=== PATIENT | female | born 1980 | race African-American/Black ===

== ENCOUNTER 2016-03-30 19:44 | Emergency (ER) | payer MEDICAID ==
--- NOTE | 2016-03-30 21:14 | ER Document Report ---
ED Medical Screen (RME) - General Stated Complaint: CHEST PAIN Mode of Arrival: Ambulatory Information source: Patient Notes: pt presents with multiple c/o, sore throat, cough, chest pain, vomiting, runny nose, abdominal pain. Denies diarrhea, reports fever earlier today. Took tylenol. Denies pmh. TRAVEL OUTSIDE OF THE [place] IN LAST 30 DAYS: No - Related Data Allergies/Adverse Reactions: No Known Allergies Allergy (Verified 11/17/15 10:27) Past Medical History - Past Medical History Cardiac Medical History: Denies: Hx Coronary Artery Disease, Hx Heart Attack, Hx Hypertension Pulmonary Medical History: Denies: Hx Asthma, Hx Bronchitis, Hx COPD, Hx Pneumonia Neurological Medical History: Denies: Hx Cerebrovascular Accident, Hx Seizures Renal/ Medical History: Reports: Hx Kidney Stones, Hx Ovarian Cysts Musculoskeltal Medical History: Denies Hx Arthritis Skin Medical History: Reports Hx MRSA - MRSA 06/06/08 BREAST Infectious Medical History: Reports: Hx MRSA Past Surgical History: Reports: Hx Cholecystectomy - Immunizations Hx Diphtheria, Pertussis, Tetanus Vaccination: Yes
--- NOTE | 2016-03-30 21:44 | EKG REPORT ---
SEVERITY:- OTHERWISE NORMAL ECG - SINUS TACHYCARDIA : Confirmed by: Emily Adkins MD 30-Mar-2016 21:43:57
[2016-03-30 22:03] LABS: ABSOLUTE EOSINOPHILS # (AUTO) 0.1 10^3/uL (0.0-0.6); ABSOLUTE LYMPHOCYTES (AUTO) 1.6 10^3/uL (0.5-4.7); ABSOLUTE MONOCYTES (AUTO) 0.4 10^3/uL (0.1-1.4); ABSOLUTE NEUT (AUTO) 4.5 10^3/uL (1.7-8.2); BASOPHILS % (AUTO) 0.6 % (0-2); EOSINOPHILS % (AUTO) 2.1 % (0-6); HEMATOCRIT 35.2 % (36.0-47.0); HEMOGLOBIN 11.2 g/dL (12.0-15.5); HGB HCT DIFFERENCE -1.6; LYMPHOCYTES % (AUTO) 23.4 % (13-45); MEAN CORPUSCULAR HEMOGLOBIN 28.5 pg (27.0-33.4); MEAN CORPUSCULAR HGB CONC 31.9 g/dL (32.0-36.0); MEAN CORPUSCULAR VOLUME 89 fl (80-97); MONOCYTES % (AUTO) 6.2 % (3-13); RED BLOOD COUNT 3.93 10^6/uL (3.72-5.28); RED CELL DISTRIBUTION WIDTH 13.2 % (11.5-14.0); SEGMENTED NEUTROPHILS % (AUTO) 67.7 % (42-78); WHITE BLOOD COUNT 6.6 10^3/uL (4.0-10.5)
[2016-03-30 22:12] LABS: APPEARANCE,URINE SLIGHTLY-CLOUDY; BILIRUBIN,URINE NEGATIVE (NEGATIVE); GLUCOSE, URINE NEGATIVE (NEGATIVE); KETONES,URINE NEGATIVE (NEGATIVE); LEUKOCYTE ESTERASE,URINE TRACE (NEGATIVE); NITRITE,URINE NEGATIVE (NEGATIVE); PROTEIN,URINE NEGATIVE (NEGATIVE); URINE SPECIFIC GRAVITY 1.028; UROBILINOGEN,URINE NEGATIVE mg/dL (<2.0)
[2016-03-30 22:24] LABS: ALANINE AMINOTRANSFERASE 28 U/L (9-52); ALBUMIN 4.3 g/dL (3.5-5.0); ALKALINE PHOSPHATASE 65 U/L (38-126); ANION GAP 11 (5-19); ASPARTATE AMINO TRANSFERASE 17 U/L (14-36); BILIRUBIN,TOTAL 0.4 mg/dL (0.2-1.3); BLOOD UREA NITROGEN 15 mg/dL (7-20); CALCIUM 9.6 mg/dL (8.4-10.2); CARBON DIOXIDE 29 mmol/L (22-30); CHLORIDE 102 mmol/L (98-107); CREATININE RESULT 0.81 mg/dL (0.52-1.25); GLUCOSE 90 mg/dL (75-110); POTASSIUM 4.2 mmol/L (3.6-5.0); SODIUM 141.8 mmol/L (137-145); TOTAL PROTEIN 7.1 g/dL (6.3-8.2)
[2016-03-31] MEDS ORDERED: ONDANSETRON 4 MG TAB.RAPDIS PO ONE (01:31)
[2016-03-31] MEDS ORDERED: ACETAMINOPHEN 325 MG TABLET PO ONE (01:31)
--- NOTE | 2016-03-31 01:39 | ER Document Report ---
ED General - General Mode of Arrival: Ambulatory Information source: Patient TRAVEL OUTSIDE OF THE [place] IN LAST 30 DAYS: No - HPI Patient complains to provider of: Headache, nausea, and vomiting Onset: This morning Associated symptoms: Other - see above <ADA ESAT - Last Filed: 03/31/16 02:32> <LEONCIOSAMIR ANN - Last Filed: 03/31/16 03:40> - General Chief Complaint: Flu Symptoms Stated Complaint: CHEST PAIN Notes: 35-year-old female presents to the ED complaining of flulike symptoms including headache, vomiting, and nausea that started earlier today. Patient denies abdominal pain or diarrhea. He states that she usually takes Tylenol for her headache and that it usually works. At the time of the exam the patient is able to keep food down and denies vomiting while in the ED. (ADA EAST) - Related Data Allergies/Adverse Reactions: No Known Allergies Allergy (Verified 11/17/15 10:27) Past Medical History - General Information source: Patient - Social History Smoking Status: Unknown if Ever Smoked Frequency of alcohol use: None Drug Abuse: None Family History: CAD, Hyperlipidemia, Hypertension, Malignancy Patient has suicidal ideation: No Patient has homicidal ideation: No Renal/ Medical History: Reports: Hx Kidney Stones, Hx Ovarian Cysts Skin Medical History: Reports Hx MRSA - MRSA 06/06/08 BREAST Infectious Medical History: Reports: Hx MRSA Past Surgical History: Reports: Hx Cholecystectomy - Immunizations Hx Diphtheria, Pertussis, Tetanus Vaccination: Yes <ADA EAST - Last Filed: 03/31/16 02:32> Review of Systems - Review of Systems Constitutional: No symptoms reported EENT: No symptoms reported Cardiovascular: No symptoms reported Respiratory: No symptoms reported Gastrointestinal: See HPI, Nausea, Vomiting. denies: Abdominal pain, Diarrhea Genitourinary: No symptoms reported Female Genitourinary: No symptoms reported Musculoskeletal: No symptoms reported Skin: No symptoms reported Hematologic/Lymphatic: No symptoms reported Neurological/Psychological: See HPI, Headaches -: Yes All other systems reviewed and negative <ADA EAST - Last Filed: 03/31/16 02:32> Physical Exam - General General appearance: Alert In distress: None - HEENT Head: Normocephalic, Atraumatic Eyes: Normal Extraocular movements intact: Yes Pupils: PERRL - Respiratory Respiratory status: No respiratory distress Breath sounds: Normal - Cardiovascular Rhythm: Regular Heart sounds: Normal auscultation - Abdominal Inspection: Normal - Back Back: Normal - Extremities General upper extremity: Normal inspection, Normal ROM General lower extremity: Normal inspection, Normal ROM - Neurological Neuro grossly intact: Yes Cognition: Normal Orientation: AAOx4 [place] Coma Scale Eye Opening: Spontaneous [place] Coma Scale Verbal: Oriented [place] Coma Scale Motor: Obeys Commands [place] Coma Scale Total: 15 Speech: Normal - Psychological Associated symptoms: Normal affect, Normal mood - Skin Skin Temperature: Warm Skin Moisture: Dry Skin Color: Normal <ADA EAST - Last Filed: 03/31/16 02:32> Course - Laboratory Result Diagrams: 03/30/16 21:40 03/30/16 21:40 <ADA EAST - Last Filed: 03/31/16 02:32> - Laboratory Result Diagrams: 03/30/16 21:40 03/30/16 21:40 - Diagnostic Test Radiology reviewed: Reports reviewed <SAMIR FANG - Last Filed: 03/31/16 03:40> - Re-evaluation Re-evalutation: 03/31/16 03:39 Patient feels better after medications. Blood work within normal limits. X- ray within normal limits. Stable for discharge home. Follow-up with PMD. ( SAMIR FANG) - Laboratory Laboratory results interpreted by me: 03/30/16 03/30/16 21:40 21:40 Hgb 11.2 L Hct 35.2 L MCHC 31.9 L Ur Leukocyte Esterase TRACE H (ADA EAST) (SAMIR FANG) Discharge <ADA EAST - Last Filed: 03/31/16 02:32> <SAMIR FANG - Last Filed: 03/31/16 03:40> - Discharge Clinical Impression: Atypical chest pain Vomiting Qualifiers: Vomiting type: unspecified Vomiting Intractability: non-intractable Nausea presence: with nausea Qualified Code(s): R11.2 - Nausea with vomiting, unspecified Condition: Stable Disposition: HOME, SELF-CARE Instructions: Vomiting ([facility]), Chest Pain of Unclear Cause ([facility]) Forms: Return to Work Scribe Attestation: 03/31/16 03:40 I personally performed the services described in the documentation, reviewed and edited the documentation which was dictated to the scribe in my presence, and it accurately records my words and actions. (SAMIR FANG) Scribe Documentation - Scribe Written by Scribe:: Candido Alexandre, 03/31/2016 2:01 acting as scribe for :: Leoncio <ADA EAST - Last Filed: 03/31/16 02:32>
[2016-03-31] MEDS ORDERED: ONDANSETRON ODT 4 MG TAB (6 TAB/DSPK) PO PRN (03:30)
[2016-03-31 04:12] VITALS: BP 108/55
== END 2016-03-31 04:10 | disposition home or self-care (01) ==
LOC: ER 19:44
DX: R11.2 Nausea with vomiting, unspecified (principal); R07.89 Other chest pain; R51 Headache; Z86.14 Personal history of Methicillin resistant Staphylococcus aureus infection; Z90.49 Acquired absence of other specified parts of digestive tract
CPT/HCPCS: 93005; 99284; 36415; 87070; 87880; 84703; 85025; 80053; 81001; 84484; 87804; 71020; 93010; J3490; S0119

== ENCOUNTER 2016-08-03 11:29 | Emergency (ER) | payer MEDICAID ==
[2016-08-03] MEDS ORDERED: ONDANSETRON 4 MG TAB.RAPDIS PO ONE (12:02)
[2016-08-03] MEDS ORDERED: NORMAL SALINE 1000 ML 1,000 ML IV ONE (12:03)
--- NOTE | 2016-08-03 12:06 | ER Document Report ---
ED Medical Screen (RME) - General Chief Complaint: Nausea/Vomiting Stated Complaint: VOMITING,STOMACH PAIN Time Seen by Provider: 08/03/16 11:55 Mode of Arrival: Ambulatory Information source: Patient Notes: This is a 36-year-old female who presents with left flank and left lower abdominal pain for the past 2 or 3 days as well as persistent nausea and vomiting. Of note, she had a positive home test 3 days ago. She is a with 2 prior first trimester miscarriages. She denies any vaginal bleeding. No dysuria or hematuria. She does have a history of kidney stones but states this feels somewhat different. No fevers or chills. She is noted to be actively vomiting in the triage room I have greeted and performed a rapid initial assessment of this patient. A comprehensive ED assessment and evaluation of the patient, analysis of test results and completion of the medical decision making process will be conducted by additional ED providers. TRAVEL OUTSIDE OF THE [place] IN LAST 30 DAYS: No - Related Data Allergies/Adverse Reactions: No Known Allergies Allergy (Verified 08/03/16 11:44) Past Medical History - Past Medical History Cardiac Medical History: Denies: Hx Coronary Artery Disease, Hx Heart Attack, Hx Hypertension Pulmonary Medical History: Denies: Hx Asthma, Hx Bronchitis, Hx COPD, Hx Pneumonia Neurological Medical History: Denies: Hx Cerebrovascular Accident, Hx Seizures Renal/ Medical History: Reports: Hx Kidney Stones, Hx Ovarian Cysts. Denies: Hx Peritoneal Dialysis Musculoskeltal Medical History: Denies Hx Arthritis Skin Medical History: Reports Hx MRSA - MRSA 06/06/08 BREAST Infectious Medical History: Reports: Hx MRSA Past Surgical History: Reports: Hx Cholecystectomy - Immunizations Hx Diphtheria, Pertussis, Tetanus Vaccination: Yes Physical Exam - General In distress: Mild - alert, conversant, uncomfortable and actively vomiting
[2016-08-03 12:57] LABS: ABSOLUTE EOSINOPHILS # (AUTO) 0.1 10^3/uL (0.0-0.6); ABSOLUTE LYMPHOCYTES (AUTO) 2.5 10^3/uL (0.5-4.7); ABSOLUTE MONOCYTES (AUTO) 0.5 10^3/uL (0.1-1.4); ABSOLUTE NEUT (AUTO) 6.8 10^3/uL (1.7-8.2); BASOPHILS % (AUTO) 0.4 % (0-2); EOSINOPHILS % (AUTO) 0.7 % (0-6); HEMOGLOBIN 13.5 g/dL (12.0-15.5); HGB HCT DIFFERENCE -1.5; LYMPHOCYTES % (AUTO) 25.1 % (13-45); MEAN CORPUSCULAR HEMOGLOBIN 29.3 pg (27.0-33.4); MEAN CORPUSCULAR HGB CONC 32.2 g/dL (32.0-36.0); MEAN CORPUSCULAR VOLUME 91 fl (80-97); MONOCYTES % (AUTO) 4.5 % (3-13); RED BLOOD COUNT 4.62 10^6/uL (3.72-5.28); SEGMENTED NEUTROPHILS % (AUTO) 69.3 % (42-78); WHITE BLOOD COUNT 9.9 10^3/uL (4.0-10.5)
[2016-08-03 13:09] LABS: APPEARANCE,URINE CLOUDY; BILIRUBIN,URINE NEGATIVE (NEGATIVE); GLUCOSE, URINE NEGATIVE (NEGATIVE); KETONES,URINE 20 mg/dL (NEGATIVE); LEUKOCYTE ESTERASE,URINE MODERATE (NEGATIVE); NITRITE,URINE NEGATIVE (NEGATIVE); PROTEIN,URINE 30 mg/dL (NEGATIVE); URINE SPECIFIC GRAVITY 1.029; UROBILINOGEN,URINE NEGATIVE mg/dL (<2.0)
--- NOTE | 2016-08-03 13:57 | RADIOLOGY REPORT (SQ) ---
EXAM DESCRIPTION: U/S OB TRANSVAGINAL W/O DOP COMPLETED DATE/TIME: 08/03/2016 1:48 pm REASON FOR STUDY: LLQ pain COMPARISON: None. TECHNIQUE: Transvaginal static and realtime grayscale images acquired of the pelvis. Additional teodoro cted spectral and color Doppler images recorded. All images stored on PACs. bHCG: Not available. LIMITATIONS: None. FINDINGS: FETUS: Living intrauterine . EGA: 6 week 4 day. ALMA DELIA: 03/25/2017. FHR: 124 beats per minute. SUBCHORIONIC BLEED: Yes. SIZE OF BLEED: 3 mm by 2.4 cm. UTERUS: No masses. No anomalies. CERVICAL LENGTH: 4.2 Closed. RIGHT ADNEXA: Ovary not identified. No adnexal free fluid. No adnexal masses. LEFT ADNEXA: Ovary not identified. No adnexal free fluid. No adnexal masses. FREE FLUID: None. OTHER: No other significant finding. IMPRESSION: LIVING INTRAUTERINE . EGA 6 WEEK 4 DAY. Trimester of : First - 0 to 13 weeks. TECHNICAL DOCUMENTATION: JOB ID: [id number] [employer]- All Rights Reserved
[2016-08-03 14:31] LABS: ALANINE AMINOTRANSFERASE 35 U/L (9-52); ALBUMIN 4.5 g/dL (3.5-5.0); ALKALINE PHOSPHATASE 58 U/L (38-126); ANION GAP 12 (5-19); ASPARTATE AMINO TRANSFERASE 21 U/L (14-36); BILIRUBIN,DIRECT 0.3 mg/dL (0.0-0.4); BILIRUBIN,TOTAL 0.8 mg/dL (0.2-1.3); BLOOD UREA NITROGEN 12 mg/dL (7-20); CALCIUM 9.7 mg/dL (8.4-10.2); CARBON DIOXIDE 24 mmol/L (22-30); CHLORIDE 103 mmol/L (98-107); CREATININE RESULT 0.72 mg/dL (0.52-1.25); GLUCOSE 96 mg/dL (75-110); LIPASE 66.2 U/L (23-300); POTASSIUM 4.7 mmol/L (3.6-5.0); SODIUM 138.7 mmol/L (137-145); TOTAL PROTEIN 7.6 g/dL (6.3-8.2)
[2016-08-03] MEDS ORDERED: ACETAMINOPHEN 325 MG TABLET PO ONE (16:22)
[2016-08-03] MEDS ORDERED: CETIRIZINE 10 MG TABLET PO ONE (16:23)
--- NOTE | 2016-08-03 17:24 | RADIOLOGY REPORT (SQ) ---
EXAM DESCRIPTION: U/S RETROPERITON (RENAL/AORTA) COMPLETED DATE/TIME: 08/03/2016 5:11 pm REASON FOR STUDY: left flank pain, , ?kidney stone COMPARISON: None. TECHNIQUE: Dynamic and static grayscale images acquired of the kidneys and bladder and recorded on P ACS. Additional selected color Doppler and spectral images recorded. LIMITATIONS: None. FINDINGS: RIGHT KIDNEY: Normal size, 10.2 cm. Normal echogenicity. No suspicious calcifications or masses. No hydronephrosis. LEFT KIDNEY: Normal size, 10.4 cm. Normal echogenicity. No suspicious calcifications or masses. N o hydronephrosis. BLADDER: Incompletely filled. Not well evaluated. OTHER FINDINGS: No other significant finding. IMPRESSION: NORMAL RENAL AND BLADDER ULTRASOUND. TECHNICAL DOCUMENTATION: JOB ID: [id number] [employer]- All Rights Reserved
[2016-08-03] MEDS ORDERED: NITROFURANTOIN MONOHYD/M-CRYST 100 MG CAPSULE PO ONE (17:25)
--- NOTE | 2016-08-03 17:37 | ER Document Report ---
ED GI/ - General Chief Complaint: Nausea/Vomiting Stated Complaint: VOMITING,STOMACH PAIN Time Seen by Provider: 08/03/16 11:55 Mode of Arrival: Ambulatory Notes: Patient is a 36-year-old female who presents emergency department complaining of headache, nausea and vomiting for the past 3 days. Patient states her last menstrual period was June 20. Took a test last week which was positive. Denies any blood in her emesis, coffee-ground emesis. Admits to intermittent cramping in her pelvic area which radiates to her left flank. States that she does have a history of kidney stones which are sporadic and maybe gets 2-3 year. TRAVEL OUTSIDE OF THE [place] IN LAST 30 DAYS: No - Related Data Allergies/Adverse Reactions: No Known Allergies Allergy (Verified 08/03/16 11:44) Past Medical History - General Information source: Patient - Social History Smoking Status: Never Smoker Chew tobacco use (# tins/day): No Drug Abuse: None Family History: CAD, Hyperlipidemia, Hypertension, Malignancy Patient has suicidal ideation: No Patient has homicidal ideation: No - Past Medical History Cardiac Medical History: Denies: Hx Coronary Artery Disease, Hx Heart Attack, Hx Hypertension Pulmonary Medical History: Denies: Hx Asthma, Hx Bronchitis, Hx COPD, Hx Pneumonia Neurological Medical History: Denies: Hx Cerebrovascular Accident, Hx Seizures Renal/ Medical History: Reports: Hx Kidney Stones, Hx Ovarian Cysts. Denies: Hx Peritoneal Dialysis Musculoskeltal Medical History: Denies Hx Arthritis Skin Medical History: Reports Hx MRSA - MRSA 06/06/08 BREAST Infectious Medical History: Reports: Hx MRSA Past Surgical History: Reports: Hx Cholecystectomy - Immunizations Hx Diphtheria, Pertussis, Tetanus Vaccination: Yes Review of Systems - Review of Systems Constitutional: No symptoms reported Gastrointestinal: See HPI Genitourinary: No symptoms reported Female Genitourinary: No symptoms reported -: Yes All other systems reviewed and negative Physical Exam - Vital signs Vitals: Temp Pulse Resp BP Pulse Ox 98 F 88 16 118/78 100 08/03/16 18:00 08/03/16 18:00 08/03/16 18:00 08/03/16 18:00 08/03/16 18:00 - Notes Notes: PHYSICAL EXAM GENERAL: Alert, interacts well. HEAD: Normocephalic, atraumatic. EYES: Pupils equal, round, and reactive to light. Extraocular movements intact. ENT: Oral mucosa moist, tongue midline. NECK: Full range of motion. Supple. Trachea midline. LUNGS: Clear to auscultation bilaterally, no wheezes, rales, or rhonchi. No respiratory distress. HEART: Regular rate and rhythm. No murmurs, gallops, or rubs. ABDOMEN: Soft, nondistended, nontender. No guarding, rebound, or rigidity.. Bowel sounds present in all 4 quadrants. Female exam deferred EXTREMITIES: Moves all 4 extremities spontaneously. No edema, radial and dorsalis pedis pulses 2/4 bilaterally. No cyanosis. NEUROLOGICAL: Alert and oriented x4. Normal speech. PSYCH: Normal affect, normal mood. SKIN: Warm, dry, normal turgor. No rashes or lesions noted. Course - Re-evaluation Re-evalutation: 08/03/16 19:30 Patient is a 36-year-old female who is hemodynamically stable, no acute distress and afebrile. Transvaginal ultrasound living IUP 6 weeks. Subchorionic bleed measuring 3mm x 2.4cm. Also positive for leuk esterase and white blood cells. Renal ultrasound did not reveal any evidence of kidney stone or hydronephrosis. discharge patient home on p.o. antibiotics with instruction to follow-up with the health department. - Vital Signs Vital signs: Temp Pulse Resp BP Pulse Ox 98 F 88 16 118/78 100 08/03/16 18:00 08/03/16 18:00 08/03/16 18:00 08/03/16 18:00 08/03/16 18:00 - Laboratory Result Diagrams: 08/03/16 12:43 08/03/16 13:50 Laboratory results interpreted by me: 08/03/16 08/03/16 12:15 13:50 Beta HCG, Quant 72511.00 H Urine Protein 30 H Urine Ketones 20 H Ur Leukocyte Esterase MODERATE H - Diagnostic Test Radiology reviewed: Reports reviewed Discharge - Discharge Clinical Impression: Heart burn, Flank pain, Condition: Good Disposition: HOME, SELF-CARE Additional Instructions: URINARY TRACT INFECTION: Your evaluation indicates that you have a urinary tract infection. This is due to germs growing in the bladder. This is a common problem. This infection usually responds quickly to antibiotics. Your antibiotic should be taken exactly as prescribed. Drink plenty of fluids -- three to four quarts a day. Occasionally, a bladder anesthetic will be prescribed to help stop the feeling of urgency until the antibiotic has a chance to clear the infection. This may cause your urine to be dark orange. Certain urine infections require a culture. If the doctor obtained a culture, the results will be back in two days. You should call to see if a change in treatment is needed. A repeat urinalysis after you finish treatment is often recommended. The physician will let you know if further testing is required. Call the doctor if you develop fever, chills, flank pain, inability to urinate, or blood in the urine. ANTIBIOTIC THERAPY: You have been given an antibiotic prescription. It's important that you take all the medication, unless instructed otherwise by your physician. Failure to complete the entire course can result in relapse of your condition. Common side effects of antibiotics include nausea, intestinal cramping, or diarrhea. Women may develop vaginal yeast infections, and babies can get yeast (thrush) in the mouth following the use of antibiotics. Contact your physician if you develop significant side effects from this medication. Allergy to this antibiotic can result in hives, wheezing, faintness, or itching. If symptoms of allergy occur, stop the medication and call the doctor. NITROFURANTOIN (MACRODANTIN, MACROBID): You have received a prescription for nitrofurantoin (Macrodantin). This antibiotic is used for urinary tract infections. Women who are or nursing should notify the physician before taking this medicine. If you have ever had a problem caused by this medication in the past, be sure the physician is aware of it. Common side effects of this medicine include nausea, vomiting, or decreased appetite. Notify your physician if these side effects become severe. Immediately stop this medicine and call the physician if you develop cough , shortness of breath, chest pain, weakness, jaundice (yellow color of the skin and whites of the eyes), or a skin rash. FOLLOW-UP CARE: If you have been referred to a physician for follow-up care, call the physician s office for an appointment as you were instructed or within the next two days. If you experience worsening or a significant change in your symptoms, notify the physician immediately or return to the Emergency Department at any time for re-evaluation. Prescriptions: Nitrofurantoin/Nitrofuran Mac [Macrobid 100 mg Capsule] 1 tab PO BID 7 Days Forms: Return to School Referrals: HEALTH DEPT,[facility] [NO LOCAL MD] - Follow up in 1 week
[2016-08-03 19:12] VITALS: BP 118/78
== END 2016-08-03 18:00 | disposition home or self-care (01) ==
LOC: ER 11:29
DX: O26.891 Other specified pregnancy related conditions, first trimester (principal); R12 Heartburn; R10.2 Pelvic and perineal pain; R10.9 Unspecified abdominal pain; R51 Headache; O20.8 Other hemorrhage in early pregnancy; O21.9 Vomiting of pregnancy, unspecified; Z3A.01 Less than 8 weeks gestation of pregnancy; Z87.442 Personal history of urinary calculi; Z87.42 Personal history of other diseases of the female genital tract; Z86.14 Personal history of Methicillin resistant Staphylococcus aureus infection; Z90.49 Acquired absence of other specified parts of digestive tract
CPT/HCPCS: 99284; 96360; 86900; 86901; 36415; 84702; 83690; 85025; 80053; 81001; 76817; 76770; J3490 ×2; S0119; J7030

== ENCOUNTER 2016-08-05 11:02 | Emergency (ER) | payer MEDICAID ==
--- NOTE | 2016-08-05 12:05 | ER Document Report ---
ED Medical Screen (RME) - General Chief Complaint: Abdominal Pain Stated Complaint: ABDOMINAL PAIN Time Seen by Provider: 08/05/16 11:58 Mode of Arrival: Ambulatory Information source: Patient TRAVEL OUTSIDE OF THE [place] IN LAST 30 DAYS: No - HPI Onset: Yesterday Onset/Duration: Sudden Severity: Severe Associated Symptoms: Nausea, Vomiting Exacerbated by: Other - VOMITING Relieved by: Denies Similar symptoms previously: No Recently seen / treated by doctor: No - Related Data Allergies/Adverse Reactions: No Known Allergies Allergy (Verified 08/05/16 11:04) Past Medical History - General Information source: Patient - Past Medical History Cardiac Medical History: Reports: None Denies: Hx Coronary Artery Disease, Hx Heart Attack, Hx Hypertension Pulmonary Medical History: Reports: None Denies: Hx Asthma, Hx Bronchitis, Hx COPD, Hx Pneumonia EENT Medical History: Reports: None Neurological Medical History: Denies: Hx Cerebrovascular Accident, Hx Seizures Endocrine Medical History: Reports: None Renal/ Medical History: Reports: Hx Kidney Stones, Hx Ovarian Cysts. Denies: Hx Peritoneal Dialysis Malignancy Medical History: Reports: None GI Medical History: Reports: None Musculoskeltal Medical History: Denies Hx Arthritis Skin Medical History: Reports Hx MRSA - MRSA 06/06/08 BREAST Psychiatric Medical History: Reports: None Infectious Medical History: Reports: Hx MRSA Past Surgical History: Reports: Hx Cholecystectomy - Immunizations Hx Diphtheria, Pertussis, Tetanus Vaccination: Yes Review of Systems - Review of Systems -: Yes ROS unobtainable due to patient's medical condition - VERY POOR HISTORIAN , APPEARS TO BE IN SEVERE PAIN Physical Exam - Vital signs Vitals: Temp Pulse Resp BP Pulse Ox 98.2 F 93 17 133/87 H 98 08/05/16 11:04 08/05/16 11:04 08/05/16 11:04 08/05/16 11:04 08/05/16 11:04 Interpretation: Normal. No: Tachycardic, Tachypneic, Febrile - General General appearance: Alert In distress: Moderate Notes: PERSISTS IN POSITION, POORLY COOPERATIVE WITH Hx AND EXAM - HEENT Head: Normocephalic Eyes: Normal - Respiratory Respiratory status: No respiratory distress - Cardiovascular Rhythm: Regular - Abdominal Inspection: Other - UNABLE TO EXAMINE, IN POSITION - Extremities General upper extremity: Normal inspection General lower extremity: Normal inspection - Skin Skin Temperature: Warm Skin Moisture: Dry Skin Color: Normal Skin Turgor: Elastic Course - Vital Signs Vital signs: Temp Pulse Resp BP Pulse Ox 98.2 F 93 17 133/87 H 98 08/05/16 11:04 08/05/16 11:04 08/05/16 11:04 08/05/16 11:04 08/05/16 11:04
[2016-08-05] MEDS ORDERED: NORMAL SALINE 1000 ML 1,000 ML IV ONE (12:09)
[2016-08-05 13:17] LABS: ABSOLUTE LYMPHOCYTES (AUTO) 2.5 10^3/uL (0.5-4.7); ABSOLUTE MONOCYTES (AUTO) 0.7 10^3/uL (0.1-1.4); ABSOLUTE NEUT (AUTO) 7.3 10^3/uL (1.7-8.2); BASOPHILS % (AUTO) 0.4 % (0-2); EOSINOPHILS % (AUTO) 0.4 % (0-6); HEMATOCRIT 40.1 % (36.0-47.0); HEMOGLOBIN 13.2 g/dL (12.0-15.5); HGB HCT DIFFERENCE -0.5; LYMPHOCYTES % (AUTO) 23.7 % (13-45); MEAN CORPUSCULAR HEMOGLOBIN 29.5 pg (27.0-33.4); MEAN CORPUSCULAR HGB CONC 32.8 g/dL (32.0-36.0); MEAN CORPUSCULAR VOLUME 90 fl (80-97); MONOCYTES % (AUTO) 6.7 % (3-13); RED BLOOD COUNT 4.46 10^6/uL (3.72-5.28); SEGMENTED NEUTROPHILS % (AUTO) 68.8 % (42-78); WHITE BLOOD COUNT 10.6 10^3/uL (4.0-10.5)
--- NOTE | 2016-08-05 13:22 | ER Document Report ---
ED General - General Chief Complaint: Abdominal Pain Stated Complaint: ABDOMINAL PAIN Time Seen by Provider: 08/05/16 11:58 Mode of Arrival: Ambulatory Notes: The patient presents to the emergency department with complaints of burning in her stomach. She reports she cannot eat or drink since Monday. Patient was evaluated in the emergency department Monday for abdominal pain. At that time patient found out she is currently 6 weeks . She denies fever diarrhea. She reports epigastric pain. Reports that she had these same symptoms with her other 2 pregnancies for the first 3 months of . Patient was evaluated and treated for UTI 2 days ago in the emergency department. She just filled her prescription this a.m. Has taken 1 dose. TRAVEL OUTSIDE OF THE [place] IN LAST 30 DAYS: No - HPI Onset: Yesterday Onset/Duration: Persistent Quality of pain: Burning Severity: Severe Pain Level: 5 Associated symptoms: Nausea Exacerbated by: Food Relieved by: Denies Similar symptoms previously: Yes Recently seen / treated by doctor: Yes - Related Data Allergies/Adverse Reactions: No Known Allergies Allergy (Verified 08/05/16 11:04) Past Medical History - General Information source: Patient Last Menstrual Period: - 6 w - Social History Smoking Status: Current Every Day Smoker Cigarette use (# per day): Yes Chew tobacco use (# tins/day): No Frequency of alcohol use: None Drug Abuse: None. denies: Marijuana - quit Lives with: Family Family History: CAD, Hyperlipidemia, Hypertension, Malignancy Patient has suicidal ideation: No Patient has homicidal ideation: No - Past Medical History Cardiac Medical History: Reports: None Denies: Hx Coronary Artery Disease, Hx Heart Attack, Hx Hypertension Pulmonary Medical History: Reports: None Denies: Hx Asthma, Hx Bronchitis, Hx COPD, Hx Pneumonia EENT Medical History: Reports: None Neurological Medical History: Denies: Hx Cerebrovascular Accident, Hx Seizures Endocrine Medical History: Reports: None Renal/ Medical History: Reports: Hx Kidney Stones, Hx Ovarian Cysts. Denies: Hx Peritoneal Dialysis Malignancy Medical History: Reports: None GI Medical History: Reports: Hx Gastroesophageal Reflux Disease Musculoskeltal Medical History: Denies Hx Arthritis Skin Medical History: Reports Hx MRSA - MRSA 06/06/08 BREAST Psychiatric Medical History: Reports: None Infectious Medical History: Reports: Hx MRSA Past Surgical History: Reports: Hx Cholecystectomy - Immunizations Hx Diphtheria, Pertussis, Tetanus Vaccination: Yes Review of Systems - Review of Systems Notes: Review HPI for review of systems., All other systems negative Physical Exam - Vital signs Vitals: Temp Pulse Resp BP Pulse Ox 98.2 F 93 17 133/87 H 98 08/05/16 11:04 08/05/16 11:04 08/05/16 11:04 08/05/16 11:04 08/05/16 11:04 - Notes Notes: PHYSICAL EXAMINATION: GENERAL: looks upset, emotional HEAD: Atraumatic, normocephalic. EYES: Pupils equal round extraocular movements intact, sclera anicteric, conjunctiva are normal. ENT: nares patent, . Moist mucous membranes. NECK: Normal range of motion, supple without lymphadenopathy LUNGS: CTAB and equal. No wheezes rales or rhonchi. HEART: Regular rate and rhythm without murmurs ABDOMEN: c/o epigastric tenderness. No guarding, no rebound EXTREMITIES: Normal range of motion, no pitting edema. No cyanosis. NEUROLOGICAL: Cranial nerves grossly intact. Normal sensory/motor exams. PSYCH: Normal mood, normal affect. SKIN: Warm, Dry, normal turgor, no rashes or lesions noted Course - Re-evaluation Re-evalutation: 08/05/16 14:40 sp gravity 1.038, 1 L NS and 1 l LR given. Otherwise labs unremarkable patient reports she feels much better after the GI cocktail. Sleeping soundly no more gagging. Patient will be instructed on reflux, foods to avoid, medication she may take when she is . She will be prescribed antinausea med 08/05/16 15:08 Pt now sitting up in bed c/o of abdominal burning. Spitting into an emesis bag. - Vital Signs Vital signs: Temp Pulse Resp BP Pulse Ox 98.6 F 86 24 H 141/65 H 98 08/05/16 16:08 08/05/16 16:08 08/05/16 16:08 08/05/16 16:08 08/05/16 16:08 - Laboratory Result Diagrams: 08/05/16 12:20 08/05/16 12:20 Laboratory results interpreted by me: 08/05/16 08/05/16 08/05/16 12:20 12:20 12:20 WBC 10.6 H Total Protein 8.5 H Beta HCG, Quant 50549.00 H Urine Protein 100 H Urine Ketones 80 H Ur Leukocyte Esterase MODERATE H Discharge - Discharge Clinical Impression: History of gastroesophageal reflux (GERD), , Dehydration, Epigastric abdominal pain, Elevated blood pressure reading Condition: Stable Disposition: HOME, SELF-CARE Instructions: Antacid Therapy ([facility]), Antinausea Medication ([facility]), ( [facility]), Reflux Disease (GERD) ([facility]), Dehydration ([facility]), Intravenous (IV) Fluids ( [facility]), Evaluation of Upper Abdominal Pain ([facility]) Additional Instructions: *You have been evaluated for epigastric pain, history of GERD, dehydration *Take medication as prescribed *avoid acidy foods, avoid over eating *Follow up with an HEARING AND SPEECH ASSISTANT, Health department or your primary care provider within one week *Return to ED for worsening condition, changes, needs *Return to ED if not better in 24 hours Prescriptions: Mag Hydrox/Al Hydrox/Simeth [Maalox Suspension] 10 ml PO QID #150 oral.susp Metoclopramide HCl [Reglan 10 mg Tablet] 1 tab PO TID #25 tablet Forms: Elevated Blood Pressure
[2016-08-05] MEDS ORDERED: LIDOCAINE 2% VISCOUS SOLN 20 ML UDCUP PO ONE (13:27)
[2016-08-05] MEDS ORDERED: METOCLOPRAMIDE HCL ORAL SOLN 10 MG/10 ML UDCUP PO ONE (13:27)
[2016-08-05] MEDS ORDERED: MAG HYDROX/AL HYDROX/SIMETH SUSP 30 ML UDCUP PO ONE ×2 (13:27→15:43)
[2016-08-05 13:28] LABS: APPEARANCE,URINE CLOUDY; BILIRUBIN,URINE NEGATIVE (NEGATIVE); GLUCOSE, URINE NEGATIVE (NEGATIVE); KETONES,URINE 80 mg/dL (NEGATIVE); LEUKOCYTE ESTERASE,URINE MODERATE (NEGATIVE); NITRITE,URINE NEGATIVE (NEGATIVE); PROTEIN,URINE 100 mg/dL (NEGATIVE); URINE SPECIFIC GRAVITY 1.038; UROBILINOGEN,URINE NEGATIVE mg/dL (<2.0)
[2016-08-05 13:35] LABS: ALANINE AMINOTRANSFERASE 30 U/L (9-52); ALBUMIN 4.7 g/dL (3.5-5.0); ALKALINE PHOSPHATASE 67 U/L (38-126); ANION GAP 15 (5-19); ASPARTATE AMINO TRANSFERASE 22 U/L (14-36); BILIRUBIN,DIRECT 0.4 mg/dL (0.0-0.4); BILIRUBIN,TOTAL 0.9 mg/dL (0.2-1.3); BLOOD UREA NITROGEN 12 mg/dL (7-20); CALCIUM 9.8 mg/dL (8.4-10.2); CARBON DIOXIDE 24 mmol/L (22-30); CHLORIDE 98 mmol/L (98-107); GLUCOSE 96 mg/dL (75-110); LIPASE 67.6 U/L (23-300); POTASSIUM 4.1 mmol/L (3.6-5.0); SODIUM 137.3 mmol/L (137-145); TOTAL PROTEIN 8.5 g/dL (6.3-8.2)
[2016-08-05] MEDS ORDERED: RINGERS SOLUTION,LACTATED 1,000 ML IV ONE (14:50)
[2016-08-05 16:11] VITALS: BP 141/65
== END 2016-08-05 17:00 | disposition home or self-care (01) ==
LOC: ER 11:02
DX: K21.9 Gastro-esophageal reflux disease without esophagitis (principal); E86.0 Dehydration; R10.13 Epigastric pain; R03.0 Elevated blood-pressure reading, without diagnosis of hypertension; F17.210 Nicotine dependence, cigarettes, uncomplicated; Z33.1 Pregnant state, incidental
CPT/HCPCS: 99283; 36415; 84702; 83690; 85025; 80053; 81001; J3490 ×3; J7030; J7120

== ENCOUNTER 2016-08-21 15:16 | Emergency (ER) | payer MEDICAID ==
[2016-08-21] MEDS ORDERED: NORMAL SALINE 1000 ML 2,000 ML IV ONE (16:18)
[2016-08-21] MEDS ORDERED: MAG HYDROX/AL HYDROX/SIMETH SUSP 30 ML UDCUP PO ONE (16:18)
[2016-08-21] MEDS ORDERED: LIDOCAINE 2% VISCOUS SOLN 20 ML UDCUP PO ONE (16:18)
[2016-08-21] MEDS ORDERED: METOCLOPRAMIDE HCL INJ/PF 10 MG/2 ML SDV IV ONE (16:19)
--- NOTE | 2016-08-21 16:19 | ER Document Report ---
ED GI/ - General Chief Complaint: Psych Problem Stated Complaint: CHEST PAIN Time Seen by Provider: 08/21/16 16:17 Mode of Arrival: Ambulatory Information source: Patient Notes: 36-year-old female complaining of epigastric abdominal pain, midline retrosternal with swallowing and vomiting. She is not able to swallow her spit because of pain. She is 9 weeks and is unable to eat due to the vomiting. Persistent nausea. No vaginal discharge or bleeding, no dysuria , cholecystectomyy. no fever or chills. TRAVEL OUTSIDE OF THE [place] IN LAST 30 DAYS: No - Related Data Allergies/Adverse Reactions: No Known Allergies Allergy (Verified 08/05/16 11:04) Past Medical History - General Information source: Patient - Social History Smoking Status: Unknown if Ever Smoked Frequency of alcohol use: None Drug Abuse: None Lives with: Parents Family History: CAD, Hyperlipidemia, Hypertension, Malignancy Renal/ Medical History: Reports: Hx Kidney Stones, Hx Ovarian Cysts GI Medical History: Reports: Hx Gastroesophageal Reflux Disease Skin Medical History: Reports Hx MRSA - MRSA 06/06/08 BREAST Infectious Medical History: Reports: Hx MRSA Past Surgical History: Reports: Hx Cholecystectomy - Immunizations Hx Diphtheria, Pertussis, Tetanus Vaccination: Yes Physical Exam - Vital signs Vitals: Resp BP Pulse Ox 19 134/116 H 100 08/21/16 15:36 08/21/16 15:36 08/21/16 15:36 Course - Re-evaluation Re-evalutation: 08/21/16 16:48 Already feels better with the GI cocktail worked instantaneously. 08/21/16 17:47 And burning have recurred after the GI cocktail wore off. 08/21/16 17:56 kept some apple juice and saltines down. 3rd liter NS ordered, pravacid and pepcid too. 08/21/16 18:[address] esa freeman who recommends Prevacid 30 mg daily while she is waiting for a psychiatric consult tomorrow, nightly Dyche liters, chest x-ray, and a dose of Decadron for the esophagitis. 08/21/16 18:[address] gibbs is aware that I will not be prescribing the prednisone we do not have likely just here but I ordered Prevacid 30 mg daily, Benadryl 25 mg 4 times daily and Reglan 10 mg 4 times daily. Psych will see the patient in the morning. For discharge for the hyperemesis gravidarum .1. Diclegis 1 po nightly #30 2. prevacid 30md daily #30 08/21/16 19:19 Tearful when discussing her case with Sharath who will take over on the patient. The pain has returned and we will order 3 mg of morphine and 1 g of Carafate suspension. She is willing to wait until she can talk to psych in the morning due to her feelings of depression and despondency. We will not need to IVC her because she agrees to stay with us for evaluation. Chest x-ray is pending and Sharath will check for that result. 08/21/16 19:20 - Vital Signs Vital signs: Temp Pulse Resp BP Pulse Ox 98.2 F 14 125/59 L 89 L 08/21/16 15:37 08/21/16 18:01 08/21/16 18:01 08/21/16 17:01 - Laboratory Result Diagrams: 08/21/16 15:40 08/21/16 15:40 Laboratory results interpreted by me: 08/21/16 08/21/16 15:40 18:25 Sodium 134.4 L Urine Protein 100 H Urine Ketones 80 H Urine Bilirubin SMALL H Urine Urobilinogen 2.0 H Ur Leukocyte Esterase LARGE H Salicylates < 1.0 L Acetaminophen < 10 L
[2016-08-21] MEDS ORDERED: DIPHENHYDRAMINE HCL 50 MG/ML VIAL IV ONE (16:22)
[2016-08-21 16:54] LABS: ABSOLUTE LYMPHOCYTES (AUTO) 3.1 10^3/uL (0.5-4.7); ABSOLUTE MONOCYTES (AUTO) 0.8 10^3/uL (0.1-1.4); ABSOLUTE NEUT (AUTO) 5.8 10^3/uL (1.7-8.2); BASOPHILS % (AUTO) 0.4 % (0-2); EOSINOPHILS % (AUTO) 0.5 % (0-6); HEMATOCRIT 38.1 % (36.0-47.0); HEMOGLOBIN 12.6 g/dL (12.0-15.5); HGB HCT DIFFERENCE -0.3; LYMPHOCYTES % (AUTO) 31.8 % (13-45); MEAN CORPUSCULAR HEMOGLOBIN 29.6 pg (27.0-33.4); MEAN CORPUSCULAR HGB CONC 33.1 g/dL (32.0-36.0); MEAN CORPUSCULAR VOLUME 89 fl (80-97); RED BLOOD COUNT 4.27 10^6/uL (3.72-5.28); RED CELL DISTRIBUTION WIDTH 12.4 % (11.5-14.0); SEGMENTED NEUTROPHILS % (AUTO) 59.3 % (42-78); WHITE BLOOD COUNT 9.7 10^3/uL (4.0-10.5)
[2016-08-21 17:12] LABS: ALANINE AMINOTRANSFERASE 52 U/L (9-52); ALBUMIN 4.2 g/dL (3.5-5.0); ALKALINE PHOSPHATASE 58 U/L (38-126); ANION GAP 13 (5-19); ASPARTATE AMINO TRANSFERASE 34 U/L (14-36); BILIRUBIN,DIRECT 0.4 mg/dL (0.0-0.4); BILIRUBIN,TOTAL 0.6 mg/dL (0.2-1.3); BLOOD UREA NITROGEN 9 mg/dL (7-20); CALCIUM 10.1 mg/dL (8.4-10.2); CARBON DIOXIDE 23 mmol/L (22-30); CHLORIDE 98 mmol/L (98-107); CREATININE RESULT 0.67 mg/dL (0.52-1.25); GLUCOSE 110 mg/dL (75-110); POTASSIUM 3.8 mmol/L (3.6-5.0); SODIUM 134.4 mmol/L (137-145); TOTAL PROTEIN 7.8 g/dL (6.3-8.2)
[2016-08-21 17:13] LABS: ALCOHOL < 10 mg/dL (NONE DETECTED)
[2016-08-21] MEDS ORDERED: LANSOPRAZOLE 30 MG TAB.RAP.DR PO ONE ×2 (17:49→19:15)
[2016-08-21] MEDS ORDERED: FAMOTIDINE 20 MG TABLET PO ONE (17:49)
[2016-08-21] MEDS ORDERED: NORMAL SALINE 1000 ML 1,000 ML IV ONE (17:55)
[2016-08-21 18:50] LABS: APPEARANCE,URINE CLOUDY; BILIRUBIN,URINE SMALL (NEGATIVE); GLUCOSE, URINE NEGATIVE (NEGATIVE); KETONES,URINE 80 mg/dL (NEGATIVE); LEUKOCYTE ESTERASE,URINE LARGE (NEGATIVE); NITRITE,URINE NEGATIVE (NEGATIVE); PROTEIN,URINE 100 mg/dL (NEGATIVE); URINE SPECIFIC GRAVITY 1.035
[2016-08-21 19:02] LABS: URINE BARBITURATES SCREEN NEGATIVE; URINE METHADONE SCREEN NEGATIVE; URINE OPIATES LOW NEGATIVE; URINE PHENCYCLIDINE SCREEN NEGATIVE
[2016-08-21] MEDS ORDERED: MORPHINE SULFATE 10 MG/ML INJ IV ONE (19:19)
[2016-08-21] MEDS ORDERED: SUCRALFATE SUSP 1 GM/10 ML UDCUP PO ONE (19:19)
--- NOTE | 2016-08-21 19:25 | RADIOLOGY REPORT (SQ) ---
EXAM DESCRIPTION: CHEST PA/LAT COMPLETED DATE/TIME: 08/21/2016 7:02 pm REASON FOR STUDY: chest pain, hyperemesis gravidarum COMPARISON: Two-view chest 03/30/2016 EXAM PARAMETERS: NUMBER OF VIEWS: two views TECHNIQUE: Digital Frontal and Lateral radiographic views of the chest acquired. RADIATION DOSE: NA LIMITATIONS: none FINDINGS: LUNGS AND PLEURA: No opacities, masses or pneumothorax. No pleural effusion. MEDIASTINUM AND HILAR STRUCTURES: No masses or contour abnormalities. HEART AND VASCULAR STRUCTURES: Heart normal size. No evidence for failure. BONES: No acute findings. HARDWARE: Clips right upper quadrant post cholecystectomy OTHER: No other significant finding. IMPRESSION: NO SIGNIFICANT RADIOGRAPHIC FINDING IN THE CHEST. TECHNICAL DOCUMENTATION: JOB ID: [id number] [employer]- All Rights Reserved
[2016-08-21] MEDS ORDERED: ACETAMINOPHEN 325 MG TABLET PO ONE (22:07)
[2016-08-21] MEDS ORDERED: NITROFURANTOIN MONOHYD/M-CRYST 100 MG CAPSULE PO ONE (22:15)
[2016-08-21] MEDS ORDERED: NITROFURANTOIN MONOHYD/M-CRYST 100 MG CAPSULE PO SCH (22:15)
[2016-08-21] MEDS: METOCLOPRAMIDE HCL 10 MG TABLET PO SCH (22:22)
[2016-08-21] MEDS: DIPHENHYDRAMINE HCL 25 MG CAPSULE PO SCH (22:23)
[2016-08-22] MEDS ORDERED: DIPHENHYDRAMINE HCL 25 MG CAPSULE PO SCH (06:00)
[2016-08-22] MEDS ORDERED: LANSOPRAZOLE 30 MG TAB.RAP.DR PO SCH (06:00)
[2016-08-22] MEDS ORDERED: MAG HYDROX/AL HYDROX/SIMETH SUSP 30 ML UDCUP PO ONE (10:05)
[2016-08-22] MEDS ORDERED: LIDOCAINE 2% VISCOUS SOLN 20 ML UDCUP PO ONE (10:05)
[2016-08-22] MEDS ORDERED: SUCRALFATE SUSP 1 GM/10 ML UDCUP PO ONE (10:06)
[2016-08-22] MEDS: METOCLOPRAMIDE HCL 10 MG TABLET PO SCH (10:17)
[2016-08-22] MEDS: DIPHENHYDRAMINE HCL 25 MG CAPSULE PO SCH (10:17)
--- NOTE | 2016-08-22 10:19 | EKG REPORT ---
SEVERITY:- ABNORMAL ECG - SINUS TACHYCARDIA ABNORMAL T, CONSIDER ISCHEMIA, INFERIOR LEADS : Confirmed by: Emily Adkins MD 22-Aug-2016 10:19:04
--- NOTE | 2016-08-22 11:06 | ER Document Report ---
ED Psych Disorder / Suicide - General Chief Complaint: Suicidal Ideation Stated Complaint: CHEST PAIN Time Seen by Provider: 08/21/16 16:49 Mode of Arrival: Ambulatory Information source: Patient TRAVEL OUTSIDE OF THE [place] IN LAST 30 DAYS: No - HPI Patient complains to provider of: Suicidal ideation Onset: Just prior to arrival Onset was: Gradual Suicide Risk Factors: Bipolar, Other - 6 months Normal mood: No Associated symptoms: Flat affect Similar symptoms previously: Yes Notes: Patient is a 36 year old female in the ED for chest pain. She informed triage last evening she had SI therefore a psychiatric consult was ordered. - Related Data Allergies/Adverse Reactions: No Known Allergies Allergy (Verified 08/05/16 11:04) Past Medical History - General Information source: Patient - Social History Smoking Status: Unknown if Ever Smoked Frequency of alcohol use: None Drug Abuse: None Lives with: Parents Family History: CAD, Hyperlipidemia, Hypertension, Malignancy - Past Medical History Cardiac Medical History: Denies: Hx Coronary Artery Disease, Hx Heart Attack, Hx Hypertension Pulmonary Medical History: Denies: Hx Asthma, Hx Bronchitis, Hx COPD, Hx Pneumonia Neurological Medical History: Denies: Hx Cerebrovascular Accident, Hx Seizures Renal/ Medical History: Reports: Hx Kidney Stones, Hx Ovarian Cysts. Denies: Hx Peritoneal Dialysis GI Medical History: Reports: Hx Gastroesophageal Reflux Disease Musculoskeltal Medical History: Denies Hx Arthritis Skin Medical History: Reports Hx MRSA - MRSA 06/06/08 BREAST Infectious Medical History: Reports: Hx MRSA Past Surgical History: Reports: Hx Cholecystectomy - Immunizations Hx Diphtheria, Pertussis, Tetanus Vaccination: Yes Physical Exam - Vital signs Vitals: Resp BP Pulse Ox 19 134/116 H 100 08/21/16 15:36 08/21/16 15:36 08/21/16 15:36 Course - Vital Signs Vital signs: Temp Pulse Resp BP Pulse Ox 97.8 F 98 12 117/81 99 08/22/16 10:30 08/22/16 10:30 08/22/16 10:30 08/22/16 10:00 08/22/16 10:30 - Laboratory Result Diagrams: 08/21/16 15:40 08/21/16 15:40 Laboratory results interpreted by me: 08/21/16 08/21/16 15:40 18:25 Sodium 134.4 L Urine Protein 100 H Urine Ketones 80 H Urine Bilirubin SMALL H Urine Urobilinogen 2.0 H Ur Leukocyte Esterase LARGE H Salicylates < 1.0 L Acetaminophen < 10 L
[2016-08-22 12:24] VITALS: BP 117/72
--- NOTE | 2016-08-22 12:25 | ER Document Report ---
Doctor's Note Notes: 08/22/16 12:24 Patient resting comfortably, no complaints, no issues overnight, she was seen and evaluated by mental health coordinator who recommends discharge with outpatient follow-up tomorrow, patient suicidal ideation at this time, therefore she is cleared to be discharged with the appropriate follow-up plan and she acknowledges understanding and agreement with this plan Discharge - Discharge Clinical Impression: Suicidal ideation Condition: Fair Disposition: HOME, SELF-CARE Additional Instructions: Suicidal Ideation Suicidal ideation is a common medical term for thoughts about suicide, which may be as detailed as a formulated plan, without the suicidal act itself. Although most people who undergo suicidal ideation do not commit suicide, some go on to make suicide attempts. The range of suicidal ideation varies greatly from fleeting to detailed planning, role playing, and unsuccessful attempts. While thoughts about suicide are common, most people do not carry out serious actions to commit suicide. If you have thoughts please call mobile crisis or return to the emergency department. You have a follow up appointment at [facility] tomorrow (Monday: August 23, 2016 ) at 1000 for individual therapy. Referrals: [facility] [Provider Group] - 08/23/16 10:00 am LELE JOHNSOTN MD [Primary Care Provider] - Follow up as needed
== END 2016-08-22 12:48 | disposition home or self-care (01) ==
LOC: ER 15:16
DX: O99.340 Other mental disorders complicating pregnancy, unspecified trimester (principal); F31.9 Bipolar disorder, unspecified; O26.899 Other specified pregnancy related conditions, unspecified trimester; R45.851 Suicidal ideations; R07.9 Chest pain, unspecified; O21.0 Mild hyperemesis gravidarum; Z3A.00 Weeks of gestation of pregnancy not specified
CPT/HCPCS: 93005; 99285; 96361; 96374; 96375; 36415; 87086; 80307 ×4; 83690; 85025; 80053; 81001; 71020; 93010; J3490 ×14; J1200; J2765; J2270; J7030; J8499

== ENCOUNTER 2016-09-12 20:37 | Inpatient (IN) | payer MEDICAID ==
[2016-09-12] MEDS ORDERED: DIPHENHYDRAMINE HCL 50 MG/ML VIAL IV ONE (22:07)
[2016-09-12] MEDS ORDERED: NORMAL SALINE 1000 ML 1,000 ML IV ONE (22:07)
[2016-09-12] MEDS ORDERED: METOCLOPRAMIDE HCL INJ/PF 10 MG/2 ML SDV IV ONE (22:07)
[2016-09-12] MEDS ORDERED: MAG HYDROX/AL HYDROX/SIMETH SUSP 30 ML UDCUP PO ONE (22:08)
[2016-09-12] MEDS ORDERED: LIDOCAINE 2% VISCOUS SOLN 20 ML UDCUP PO ONE (22:08)
[2016-09-12 22:09] LABS: APPEARANCE,URINE SLIGHTLY-CLOUDY; BILIRUBIN,URINE NEGATIVE (NEGATIVE); GLUCOSE, URINE NEGATIVE (NEGATIVE); KETONES,URINE 80 mg/dL (NEGATIVE); LEUKOCYTE ESTERASE,URINE SMALL (NEGATIVE); NITRITE,URINE NEGATIVE (NEGATIVE); PROTEIN,URINE 30 mg/dL (NEGATIVE); URINE SPECIFIC GRAVITY 1.024; UROBILINOGEN,URINE NEGATIVE mg/dL (<2.0)
--- NOTE | 2016-09-12 22:13 | ER Document Report ---
ED GI/ - General Mode of Arrival: Ambulatory Information source: Patient TRAVEL OUTSIDE OF THE [place] IN LAST 30 DAYS: No - HPI Patient complains to provider of: Vaginal bleeding Associated symptoms: Other - See above <ARMANDO CASTRO - Last Filed: 09/12/16 22:13> <HELLEN ALLAN - Last Filed: 09/13/16 00:55> <KIN BAÑUELOS - Last Filed: 09/13/16 02:22> - General Chief Complaint: Vag Bleeding, +preg <12wks Stated Complaint: VAGINAL BLEEDING Time Seen by Provider: 09/12/16 21:55 Notes: Patient is a 36 year old female, with a past medical history including anxiety, who presents to the emergency department complaining of vaginal bleeding onset at 1600 this afternoon. Patient is about 12 weeks and has been to this facility multiple times for nausea, vomiting, and abdominal pain with her preganncy which she is still experiencing. Patient reports she started vomiting blood today as well. Patient states that she has not yet picked up her prescription for suppository anti-nausea medication. Patient reports he abdominal pain is located in her upper abdomen. Patient is going to [facility] for her and had an ultrasound on July 08. Her blood type is B+. (ARMANDO CASTRO) - Related Data Allergies/Adverse Reactions: No Known Allergies Allergy (Verified 08/05/16 11:04) Past Medical History - General Information source: Patient - Social History Smoking Status: Former Smoker Chew tobacco use (# tins/day): No Frequency of alcohol use: None Drug Abuse: None Family History: Reviewed & Not Pertinent, CAD, Hyperlipidemia, Hypertension, Malignancy Patient has suicidal ideation: No Patient has homicidal ideation: No Renal/ Medical History: Reports: Hx Kidney Stones, Hx Ovarian Cysts GI Medical History: Reports: Hx Gastroesophageal Reflux Disease Skin Medical History: Reports Hx MRSA - MRSA 06/06/08 BREAST Psychiatric Medical History: Reports: Hx Anxiety Infectious Medical History: Reports: Hx MRSA Past Surgical History: Reports: Hx Cholecystectomy - Immunizations Hx Diphtheria, Pertussis, Tetanus Vaccination: Yes <ARMANDO CASTRO - Last Filed: 09/12/16 22:13> Review of Systems - Review of Systems Constitutional: No symptoms reported EENT: No symptoms reported Cardiovascular: No symptoms reported Respiratory: No symptoms reported Gastrointestinal: See HPI, Abdominal pain, Nausea, Vomiting, Blood in vomit Genitourinary: No symptoms reported Female Genitourinary: See HPI, Vaginal bleeding Musculoskeletal: No symptoms reported Skin: No symptoms reported Hematologic/Lymphatic: No symptoms reported Neurological/Psychological: No symptoms reported -: Yes All other systems reviewed and negative <ARMANDO CASTRO - Last Filed: 09/12/16 22:13> Physical Exam - Vital signs Interpretation: Normal - General General appearance: Alert, Other - Appears uncomfortable, spitting up during exam - HEENT Head: Normocephalic, Atraumatic - Respiratory Respiratory status: No respiratory distress Chest status: Nontender Breath sounds: Normal Chest palpation: Normal - Cardiovascular Rhythm: Regular Heart sounds: Normal auscultation Murmur: No - Abdominal Inspection: Normal Distension: No distension Bowel sounds: Normal Tenderness: Nontender Organomegaly: No organomegaly - Extremities General upper extremity: Normal inspection General lower extremity: Normal inspection - Neurological Neuro grossly intact: Yes Cognition: Normal Orientation: AAOx4 Armando Coma Scale Eye Opening: Spontaneous [place] Coma Scale Verbal: Oriented Armando Coma Scale Motor: Obeys Commands [place] Coma Scale Total: 15 Speech: Normal - Psychological Associated symptoms: Normal affect, Normal mood, Tearful - Skin Skin Temperature: Warm Skin Moisture: Dry Skin Color: Normal <ARMANDO CASTRO - Last Filed: 09/12/16 22:13> <HELLEN ALLAN - Last Filed: 09/13/16 00:55> <KIN BAÑUELOS - Last Filed: 09/13/16 02:22> - Vital signs Vitals: Temp Pulse Resp BP Pulse Ox 98.6 F 113 H 18 90/68 L 97 09/12/16 20:52 09/12/16 20:52 09/12/16 20:52 09/12/16 20:52 09/12/16 20:52 Course <ARMANDO CASTRO - Last Filed: 09/12/16 22:13> - Laboratory Result Diagrams: 09/12/16 22:30 09/12/16 22:30 - Transfer of Care Care transferred to following provider: Dr. Bañuelos <HELLEN ALLAN - Last Filed: 09/13/16 00:55> - Laboratory Result Diagrams: 09/12/16 22:30 09/12/16 22:30 <KIN BAÑUELOS - Last Filed: 09/13/16 02:22> - Re-evaluation Re-evalutation: 09/13/16 02:22 Received IV fluids and multiple doses of nausea medication. She was checked out to me by Dr. Quigley. I have reevaluated patient. She continues to have vomiting and feels very nauseous. At this time I spoke with Dr. Potts, OB physician metal container maker, to admit the patient. Dictation of this chart was performed using voice recognition software; therefore, there may be some unintended grammatical errors. (KIN BAÑUELOS) - Vital Signs Vital signs: Temp Pulse Resp BP Pulse Ox 98.3 F 107 H 20 121/68 98 09/13/16 00:22 09/13/16 00:22 09/13/16 00:22 09/13/16 00:22 09/13/16 00:22 - Laboratory Laboratory results interpreted by me: 09/12/16 09/12/16 21:30 22:30 WBC 11.4 H Hgb 11.7 L Hct 35.7 L Urine Protein 30 H Urine Ketones 80 H Urine Blood LARGE H Ur Leukocyte Esterase SMALL H - Transfer of Care Notes: 09/13/16 00:55 Patient is receiving antiemetics and IV fluids. When she is adequately rehydrated, if still unable to keep down fluids, then will be should be consulted for admission. (HELLEN ALLAN) Discharge <ARMANDO CASTRO - Last Filed: 09/12/16 22:13> <HELLEN ALLAN - Last Filed: 09/13/16 00:55> - Discharge Admitting Provider: [facility] Admitted: Post <KIN BAÑUELOS - Last Filed: 09/13/16 02:22> - Discharge Clinical Impression: Hyperemesis gravidarum Condition: Stable Disposition: ADMITTED OBSERVATION Scribe Documentation - Scribe Written by Remigio:: remigio Rene, 09/12/162211 acting as scribe for :: Josr <ARMANDO CASTRO - Last Filed: 09/12/16 22:13>
[2016-09-12 22:43] LABS: ABSOLUTE EOSINOPHILS # (AUTO) 0.1 10^3/uL (0.0-0.6); ABSOLUTE LYMPHOCYTES (AUTO) 2.8 10^3/uL (0.5-4.7); ABSOLUTE MONOCYTES (AUTO) 0.7 10^3/uL (0.1-1.4); ABSOLUTE NEUT (AUTO) 7.8 10^3/uL (1.7-8.2); BASOPHILS % (AUTO) 0.3 % (0-2); EOSINOPHILS % (AUTO) 0.9 % (0-6); HEMATOCRIT 35.7 % (36.0-47.0); HEMOGLOBIN 11.7 g/dL (12.0-15.5); HGB HCT DIFFERENCE -0.6; LYMPHOCYTES % (AUTO) 24.9 % (13-45); MEAN CORPUSCULAR HEMOGLOBIN 29.3 pg (27.0-33.4); MEAN CORPUSCULAR HGB CONC 32.7 g/dL (32.0-36.0); MEAN CORPUSCULAR VOLUME 89 fl (80-97); MONOCYTES % (AUTO) 5.9 % (3-13); RED CELL DISTRIBUTION WIDTH 12.6 % (11.5-14.0); WHITE BLOOD COUNT 11.4 10^3/uL (4.0-10.5)
[2016-09-12 23:03] LABS: ALANINE AMINOTRANSFERASE 31 U/L (9-52); ALBUMIN 4.1 g/dL (3.5-5.0); ALKALINE PHOSPHATASE 51 U/L (38-126); ANION GAP 12 (5-19); ASPARTATE AMINO TRANSFERASE 19 U/L (14-36); BILIRUBIN,DIRECT 0.3 mg/dL (0.0-0.4); BILIRUBIN,TOTAL 0.5 mg/dL (0.2-1.3); BLOOD UREA NITROGEN 7 mg/dL (7-20); CALCIUM 10.2 mg/dL (8.4-10.2); CARBON DIOXIDE 26 mmol/L (22-30); CHLORIDE 100 mmol/L (98-107); CREATININE RESULT 0.66 mg/dL (0.52-1.25); GLUCOSE 94 mg/dL (75-110); LIPASE 47.8 U/L (23-300); POTASSIUM 4.2 mmol/L (3.6-5.0); SODIUM 137.5 mmol/L (137-145); TOTAL PROTEIN 7.5 g/dL (6.3-8.2)
[2016-09-12] MEDS ORDERED: DEXTROSE 5%-LACTATED RINGERS 1,000 ML IV ONE (23:28)
[2016-09-13] MEDS ORDERED: NORMAL SALINE 1000 ML 1,000 ML IV ONE (00:43)
[2016-09-13] MEDS ORDERED: LIDOCAINE 2% VISCOUS SOLN 20 ML UDCUP PO ONE (00:45)
[2016-09-13] MEDS ORDERED: MAG HYDROX/AL HYDROX/SIMETH SUSP 30 ML UDCUP PO ONE (00:45)
[2016-09-13] MEDS ORDERED: PROMETHAZINE HCL 25 MG TABLET PO ONE (00:46)
[2016-09-13] MEDS ORDERED: FAMOTIDINE INJ/PF 20 MG/2 ML SDV IV ONE (00:46)
[2016-09-13] MEDS ORDERED: METOCLOPRAMIDE HCL INJ/PF 10 MG/2 ML SDV IV ONE (00:49)
[2016-09-13] MEDS ORDERED: DIPHENHYDRAMINE HCL 50 MG/ML VIAL IV ONE (00:49)
[2016-09-13] MEDS ORDERED: MAG HYDROX/AL HYDROX/SIMETH SUSP 30 ML UDCUP ONE (01:16)
[2016-09-13] MEDS ORDERED: ONDANSETRON HCL INJ/PF 4 MG/2 ML SDV IV ONE (02:21)
--- NOTE | 2016-09-13 04:09 | PDOC H&P ---
History of Present Illness Admission Date/PCP: 09/13/16 02:45 TON CHA MD Patient complains of: n/v History of Present Illness: CARINE CHENEY is a 36 year old female at 12 weeks gestation. LMP Pt reports a several week long h/o n/v. Has been tx in the office with po zofran , diclegis and reglan. Now unable to hold anything down No vaginal bleeding Past Medical History LMP: 2016 Obstetrical History: none - 2 term , 2 SAB Cardiac Medical History: Denies: Myocardial Infarction, Hypertension Pulmonary Medical History: Denies: Asthma, Bronchitis, Chronic Obstructive Pulmonary Disease (COPD), Pneumonia Neurological Medical History: Denies: Seizures GI Medical History: Reports: Gastroesophageal Reflux Disease Musculoskeltal Medical History: Denies: Arthritis Infectious Medical History: Reports: Methicillin-Resistant Staph Aureus Past Surgical History Past Surgical History: Reports: Cholecystectomy, Other - LSO for dermoid cyst Social History Information Source: Patient Smoking Status: Former Smoker Frequency of Alcohol Use: None Hx Recreational Drug Use: No - Advance Directive Resuscitation Status: Full Code Family History Family History: Reviewed & Not Pertinent, CAD, Hyperlipidemia, Hypertension, Malignancy Parental Family History Reviewed: Yes Children Family History Reviewed: Yes Sibling(s) Family History Reviewed.: Yes Medication/Allergy Home Medications: Tramadol HCl 50 mg PO Q6 PRN 12/21/12 Famotidine [Pepcid 20 mg Tablet] 20 mg PO BID PRN 11/17/15 Nitrofurantoin/Nitrofuran Mac [Macrobid 100 mg Capsule] 1 tab PO BID 7 Days Mag Hydrox/Al Hydrox/Simeth [Maalox Suspension] 10 ml PO QID #150 oral.susp 04/22 Metoclopramide HCl [Reglan 10 mg Tablet] 1 tab PO TID #25 tablet 08/05/16 Allergies/Adverse Reactions: No Known Allergies Allergy (Verified 08/05/16 11:04) Review of Systems All systems: reviewed and no additional remarkable complaints except as stated Physical Exam - Physical Exam Vital Signs: Temp Pulse Resp BP Pulse Ox 98.4 F 86 24 H 111/66 100 09/13/16 03:53 09/13/16 03:53 09/13/16 03:53 09/13/16 03:53 09/13/16 03:53 General appearance: PRESENT: no acute distress, cooperative, well-developed GI/Abdominal exam: PRESENT: normal bowel sounds, soft, other - mild epigastric tenderness Assessment & Plan - Diagnosis (1) Hyperemesis gravidarum Is this a current diagnosis for this admission?: Yes (2) Qualifiers: Weeks of gestation: 12 weeks Qualified Code(s): Z3A.12 - 12 weeks gestation of Is this a current diagnosis for this admission?: Yes - Time Time Spent: 30 to 50 Minutes Medications reviewed and adjusted accordingly: Yes Anticipated discharge: Home Within: within 72 hours - will admit for IV fluid rehydration and IV antiemetics
[2016-09-13] MEDS: ONDANSETRON HCL INJ/PF 4 MG/2 ML SDV IV SCH ×3 (05:44→21:25)
[2016-09-13] MEDS: RINGERS SOLUTION,LACTATED 1,000 ML IV PRN ×2 (05:44→19:29)
--- NOTE | 2016-09-13 08:58 | RADIOLOGY REPORT (SQ) ---
EXAM DESCRIPTION: U/S OB LIMITED COMPLETED DATE/TIME: 09/13/2016 8:46 am REASON FOR STUDY: 12 WK IUP, VAG BLEEDING COMPARISON: 08/03/2016. TECHNIQUE: Transabdominal static and realtime grayscale images acquired of the pelvis. Additional se lected spectral and color Doppler images recorded. All images stored on PACs. bHCG: Not applicable. LIMITATIONS: None. FINDINGS: FETUS: EGA: 12 week 4 day. ALMA DELIA: 03/24/2017. EFW: Not applicable. FHR: 163 beats per minute. DEEPIKA: Adequate amount. CERVICAL LENGTH: 4.0 cm. Closed. UTERUS: No masses. RIGHT ADNEXA: Normal ovary with normal vascular flow. No adnexal free fluid. No adnexal masses. LEFT ADNEXA: Normal ovary with normal vascular flow. No adnexal free fluid. No adnexal masses. FREE FLUID: None. OTHER: No other significant finding. IMPRESSION: LIVING INTRAUTERINE . ESTIMATED GESTATIONAL AGE:12 WEEK 4 DAY. Trimester of : First trimester - 0 to 13 weeks. TECHNICAL DOCUMENTATION: JOB ID: [id number] [employer]- All Rights Reserved
[2016-09-13] MEDS: METOCLOPRAMIDE HCL 10 MG TABLET PO SCH ×3 (09:00→16:29)
[2016-09-13] MEDS ORDERED: NITROFURANTOIN MONOHYD/M-CRYST 100 MG CAPSULE PO SCH (10:00)
[2016-09-13] MEDS ORDERED: LANSOPRAZOLE 30 MG TAB.RAP.DR PO ONE (17:00)
[2016-09-14] MEDS: RINGERS SOLUTION,LACTATED 1,000 ML IV PRN ×2 (03:11→11:20)
[2016-09-14] MEDS: ONDANSETRON HCL INJ/PF 4 MG/2 ML SDV IV SCH (06:05)
[2016-09-14 07:07] LABS: ALANINE AMINOTRANSFERASE 30 U/L (9-52); ALBUMIN 2.9 g/dL (3.5-5.0); ALKALINE PHOSPHATASE 40 U/L (38-126); ANION GAP 8 (5-19); ASPARTATE AMINO TRANSFERASE 13 U/L (14-36); BILIRUBIN,DIRECT 0.2 mg/dL (0.0-0.4); BILIRUBIN,TOTAL 0.4 mg/dL (0.2-1.3); BLOOD UREA NITROGEN 4 mg/dL (7-20); CALCIUM 8.6 mg/dL (8.4-10.2); CARBON DIOXIDE 22 mmol/L (22-30); CHLORIDE 105 mmol/L (98-107); CREATININE RESULT 0.61 mg/dL (0.52-1.25); GLUCOSE 81 mg/dL (75-110); POTASSIUM 3.9 mmol/L (3.6-5.0); SODIUM 135.4 mmol/L (137-145); TOTAL PROTEIN 5.7 g/dL (6.3-8.2)
[2016-09-14] MEDS: METOCLOPRAMIDE HCL 10 MG TABLET PO SCH ×3 (07:50→17:03)
[2016-09-14] MEDS ORDERED: ACETAMINOPHEN 325 MG TABLET PO PRN (08:50)
[2016-09-14] MEDS ORDERED: ONDANSETRON HCL 8 MG TABLET PO PRN (09:03)
[2016-09-14] MEDS: LANSOPRAZOLE 30 MG TAB.RAP.DR PO SCH (09:16)
--- NOTE | 2016-09-14 09:56 | PDOC PROGRESS REPORT ---
Subjective Progress Note for:: 09/14/16 Subjective:: doing well except headache this am. pt reports h/o ZEE and migraines prior to . still with nausea. tolerating bland diet ok at this time. No emesis since yesterday. Physical Exam - Physical Exam Vital Signs: Temp Pulse Resp BP Pulse Ox 98.7 F 88 16 106/63 100 09/14/16 08:08 09/14/16 08:08 09/14/16 08:08 09/14/16 08:08 09/14/16 08:08 Intake & Output 09/13/16 09/14/16 09/15/16 06:59 06:59 06:59 Intake Total 1750 Balance 1750 Weight 91.2 kg General appearance: PRESENT: no acute distress Head exam: PRESENT: atraumatic Respiratory exam: PRESENT: clear to auscultation ruben, symmetrical, unlabored Cardiovascular exam: PRESENT: RRR. ABSENT: diastolic murmur, rubs, systolic murmur Pulses: PRESENT: normal dorsalis pedis pul, +2 pedal pulses bilateral GI/Abdominal exam: PRESENT: normal bowel sounds, soft. ABSENT: distended, guarding, mass, organolmegaly, rebound, tenderness Rectal exam: PRESENT: deferred Extremities exam: PRESENT: full ROM. ABSENT: calf tenderness, clubbing, pedal edema Musculoskeletal exam: PRESENT: ambulatory Neurological exam: PRESENT: alert, awake, oriented to person, oriented to place , oriented to time, oriented to situation, CN II-XII grossly intact. ABSENT: motor sensory deficit Psychiatric exam: PRESENT: appropriate affect, normal mood. ABSENT: homicidal ideation, suicidal ideation Skin exam: PRESENT: dry, intact, warm. ABSENT: cyanosis, rash Result Laboratory Results: 09/14/16 06:37 09/14/16 06:37 Sodium 135.4 L Potassium 3.9 Chloride 105 Carbon Dioxide 22 Anion Gap 8 BUN 4 L Creatinine 0.61 Est GFR ( Amer) > 60 Est GFR (Non-Af Amer) > 60 Glucose 81 Calcium 8.6 Total Bilirubin 0.4 AST 13 L ALT 30 Alkaline Phosphatase 40 Total Protein 5.7 L Albumin 2.9 L Impressions: Obstetrics Ultrasound 09/13/16 00:00 IMPRESSION: LIVING INTRAUTERINE . ESTIMATED GESTATIONAL AGE:12 WEEK 4 DAY. Trimester of : First trimester - 0 to 13 weeks. Assessment & Plan - Diagnosis (1) Hyperemesis gravidarum Is this a current diagnosis for this admission?: YesPlan: will switch to PO antiemetics. Labs slightly off this am. Pt has nto yet recieved Banana Bag - will given today and repeat labs in am. If tolerates po intake and po antiemetics may be able to discharge to home tomorrow. (2) Headache Qualifiers: Headache type: unspecified Is this a current diagnosis for this admission?: YesPlan: will try fioricet for ZEE. cont IV and po fluids. - Time Time Spent with patient: 15-24 minutes Critical Time spent with patient: Less than 15 minutes Smoking Cessation Education: 3 to 10 minutes Medications reviewed and adjusted accordingly: Yes Anticipated discharge: Home Within: within 48 hours - Inpatient Certification Based on my medical assessment, after consideration of the patient's comorbidities, presenting symptoms, or acuity I expect that the services needed warrant INPATIENT care.: Yes I certify that my determination is in accordance with my understanding of Medicare's requirements for reasonable and necessary INPATIENT services [42 CFR 412.3e].: Yes Medical Necessity: Need Close Monitoring Due to Risk of Patient Decompensation, Need For IV Fluids Post Hospital Care: D/C 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
[2016-09-14] MEDS ORDERED: BUTALB/ACETAMINOPHEN/CAFFEINE 1 TAB EACH PO PRN (09:58)
[2016-09-14] MEDS ORDERED: NORMAL SALINE 1000 ML 1,000 ML with THIAMINE HCL 100 MG, MVI, ADULT NO.1 WITH VIT K 10 ... IV SCH ×4 (12:00)
[2016-09-15] MEDS: RINGERS SOLUTION,LACTATED 1,000 ML IV PRN (06:35)
[2016-09-15 08:52] VITALS: BP 125/76
[2016-09-15] MEDS: METOCLOPRAMIDE HCL 10 MG TABLET PO SCH (09:40)
[2016-09-15] MEDS: LANSOPRAZOLE 30 MG TAB.RAP.DR PO SCH (09:40)
--- NOTE | 2016-09-15 11:04 | PDOC DISCHARGE SUMMARY ---
General - Admit/Disc Date/PCP Admission Date/Primary Care Provider: 09/13/16 07:00 TON CHA MD Discharge Date: 09/15/16 - Discharge Diagnosis (1) Headache Is this a current diagnosis for this admission?: Yes (2) Hyperemesis gravidarum Is this a current diagnosis for this admission?: Yes (3) Is this a current diagnosis for this admission?: Yes - Additional Information Resuscitation Status: Full Code Home Medications: Tramadol HCl 50 mg PO Q6 PRN 12/21/12 Famotidine [Pepcid 20 mg Tablet] 20 mg PO BID PRN 11/17/15 Nitrofurantoin/Nitrofuran Mac [Macrobid 100 mg Capsule] 1 tab PO BID 7 Days Mag Hydrox/Al Hydrox/Simeth [Maalox Suspension] 10 ml PO QID #150 oral.susp 04/22 Metoclopramide HCl [Reglan 10 mg Tablet] 1 tab PO TID #25 tablet 08/05/16 History of Present Illness History of Present Illness: CARINE CHENEY is a 36 year old female Hospital Course Hospital Course: has responded well to IV fluids and antiemetics. Electrolytes corrected with banana bag. Physical Exam - Physical Exam Vital Signs: Temp Pulse Resp BP Pulse Ox 98.2 F 91 20 125/76 100 09/15/16 08:51 09/15/16 08:51 09/15/16 08:51 09/15/16 08:51 09/15/16 08:51 Intake & Output 09/14/16 09/15/16 09/16/16 06:59 06:59 06:59 Intake Total 1750 2745 580 Output Total 2750 Balance 1750 -5 580 Weight 91.2 kg 94.6 kg General appearance: PRESENT: no acute distress, cooperative Head exam: PRESENT: atraumatic GI/Abdominal exam: PRESENT: soft Result Laboratory Results: 09/14/16 06:37 Impressions: Obstetrics Ultrasound 09/13/16 00:00 IMPRESSION: LIVING INTRAUTERINE . ESTIMATED GESTATIONAL AGE:12 WEEK 4 DAY. Trimester of : First trimester - 0 to 13 weeks. Plan Time Spent: Less than 30 Minutes - discharge home with antiemetics
== END 2016-09-15 11:35 | disposition home or self-care (01) | DRG 781 ==
LOC: ER 20:37 → EH 09-13 02:45 → 2S 09-13 03:41 → OBSVTOIN 09-13 07:00
PROVIDERS: ADMIT Obstetrics & Gynecology; ATTEND Obstetrics & Gynecology
DX: O21.0 Mild hyperemesis gravidarum (principal); O46.91 Antepartum hemorrhage, unspecified, first trimester; O09.521 Supervision of elderly multigravida, first trimester; Z3A.12 12 weeks gestation of pregnancy
CPT/HCPCS: 36415; 76815; 80053; 81001; 83690; 84443; 85025; 96361; 96365; 96375; 96376; 99285; G0378; J1200; J2405; J2765; J3411; J3490; J7030; J7120; S0028; S0119

== ENCOUNTER 2016-09-23 19:37 | Emergency (ER) | payer MEDICAID ==
[2016-09-23] MEDS ORDERED: METOCLOPRAMIDE HCL INJ/PF 10 MG/2 ML SDV IV ONE (20:34)
[2016-09-23] MEDS ORDERED: DIPHENHYDRAMINE HCL 50 MG/ML VIAL IV ONE (20:34)
[2016-09-23] MEDS ORDERED: NORMAL SALINE 1000 ML 1,000 ML IV PRN (20:34)
--- NOTE | 2016-09-23 20:36 | ER Document Report ---
ED Medical Screen (RME) - General TRAVEL OUTSIDE OF THE [place] IN LAST 30 DAYS: No - General Chief Complaint: Nausea/Vomiting Stated Complaint: CHEST PAIN Time Seen by Provider: 09/23/16 20:29 Notes: Patient is a 36 year old female presenting to the emergency department for hyperemesis, hematemesis, and abdominal pain. Patient states she went to work this morning and had to leave due to her vomiting. Patient tried taking zofran for her nausea which only lasted for about 2 hours. Patient states she also has headaches and some chest pain from the vomiting. Patient was recently admitted from 09/13-09/15. Patient is 13 weeks . Patient is A2. Patient states she had hyperemesis with her first as well. Patient has no known allergies. (ZAIRA RAMON) - Related Data Allergies/Adverse Reactions: No Known Allergies Allergy (Verified 08/05/16 11:04) Past Medical History - Social History Cigarette use (# per day): No Chew tobacco use (# tins/day): No Frequency of alcohol use: None Drug Abuse: None - Past Medical History Cardiac Medical History: Denies: Hx Heart Attack, Hx Hypertension Pulmonary Medical History: Denies: Hx Asthma, Hx Bronchitis, Hx COPD, Hx Pneumonia Neurological Medical History: Denies: Hx Seizures Renal/ Medical History: Reports: Hx Kidney Stones, Hx Ovarian Cysts. Denies: Hx Peritoneal Dialysis GI Medical History: Reports: Hx Gastroesophageal Reflux Disease Musculoskeltal Medical History: Denies Hx Arthritis Skin Medical History: Reports Hx MRSA - MRSA 06/06/08 BREAST Psychiatric Medical History: Reports: Hx Anxiety Infectious Medical History: Reports: Hx MRSA Past Surgical History: Reports: Hx Cholecystectomy, Other - LSO for dermoid cyst - Immunizations Hx Diphtheria, Pertussis, Tetanus Vaccination: Yes Physical Exam - Vital signs Vitals: Temp Pulse Resp BP Pulse Ox 98.8 F 16 L 100 H 131/79 H 100 09/23/16 20:03 09/23/16 20:03 09/23/16 20:03 09/23/16 20:03 09/23/16 20:03 - Notes Notes: GENERAL: Alert, interacts well, tearful, spitting in emesis bag, mild distress. LUNGS: No respiratory distress. (ZAIRA RAMON) Scribe Documentation - Scribe Written by Scribe:: Candido Murphy 09/23/16 20:37 acting as scribe for :: Lisa
[2016-09-23 21:35] LABS: APPEARANCE,URINE CLOUDY; BILIRUBIN,URINE NEGATIVE (NEGATIVE); CALCIUM OXALATE CRYSTALS,URINE RARE /HPF; GLUCOSE, URINE NEGATIVE (NEGATIVE); KETONES,URINE 20 mg/dL (NEGATIVE); LEUKOCYTE ESTERASE,URINE MODERATE (NEGATIVE); NITRITE,URINE NEGATIVE (NEGATIVE); PROTEIN,URINE 100 mg/dL (NEGATIVE); URINE SPECIFIC GRAVITY 1.033; UROBILINOGEN,URINE NEGATIVE mg/dL (<2.0)
[2016-09-23 21:41] LABS: ABSOLUTE EOSINOPHILS # (AUTO) 0.1 10^3/uL (0.0-0.6); ABSOLUTE LYMPHOCYTES (AUTO) 2.8 10^3/uL (0.5-4.7); ABSOLUTE MONOCYTES (AUTO) 0.5 10^3/uL (0.1-1.4); ABSOLUTE NEUT (AUTO) 6.2 10^3/uL (1.7-8.2); BASOPHILS % (AUTO) 0.4 % (0-2); EOSINOPHILS % (AUTO) 1.1 % (0-6); HEMATOCRIT 34.9 % (36.0-47.0); HEMOGLOBIN 11.6 g/dL (12.0-15.5); HGB HCT DIFFERENCE -0.1; LYMPHOCYTES % (AUTO) 29.2 % (13-45); MEAN CORPUSCULAR HEMOGLOBIN 30.1 pg (27.0-33.4); MEAN CORPUSCULAR HGB CONC 33.2 g/dL (32.0-36.0); MEAN CORPUSCULAR VOLUME 90 fl (80-97); MONOCYTES % (AUTO) 5.6 % (3-13); RED BLOOD COUNT 3.85 10^6/uL (3.72-5.28); RED CELL DISTRIBUTION WIDTH 12.7 % (11.5-14.0); SEGMENTED NEUTROPHILS % (AUTO) 63.7 % (42-78); WHITE BLOOD COUNT 9.7 10^3/uL (4.0-10.5)
[2016-09-23 21:44] LABS: ALANINE AMINOTRANSFERASE 26 U/L (9-52); ALBUMIN 4.4 g/dL (3.5-5.0); ALKALINE PHOSPHATASE 78 U/L (38-126); ANION GAP 14 (5-19); ASPARTATE AMINO TRANSFERASE 26 U/L (14-36); BILIRUBIN,DIRECT 0.3 mg/dL (0.0-0.4); BILIRUBIN,TOTAL 0.6 mg/dL (0.2-1.3); BLOOD UREA NITROGEN 6 mg/dL (7-20); CALCIUM 9.6 mg/dL (8.4-10.2); CARBON DIOXIDE 21 mmol/L (22-30); CHLORIDE 102 mmol/L (98-107); CREATININE RESULT 0.53 mg/dL (0.52-1.25); GLUCOSE 86 mg/dL (75-110); POTASSIUM 3.9 mmol/L (3.6-5.0); SODIUM 137.1 mmol/L (137-145); TOTAL PROTEIN 7.6 g/dL (6.3-8.2)
--- NOTE | 2016-09-24 00:32 | ER Document Report ---
ED GI/ - General Chief Complaint: Nausea/Vomiting Stated Complaint: CHEST PAIN Time Seen by Provider: 09/23/16 20:29 Mode of Arrival: Ambulatory Information source: Patient Notes: 2-year-old female presents to ED for nausea and vomiting at which . She states she has abdominal pain with some blood in her vomitus. She states she went to work this morning and had to leave due to her emesis. She states she took Zofran but she continued to vomit. When she first came into the emergency room she had some chest pain and headache. She states the IV fluids have helped her chest pain her abdominal pain and her headache. She was admitted on 09/13/2012 for hyperemesis. She is a a2 had hyperemesis with each . TRAVEL OUTSIDE OF THE [place] IN LAST 30 DAYS: No - HPI Patient complains to provider of: Abdominal pain, , Vomiting Onset: This morning Timing/Duration: Better Quality of pain: Burning Severity at maximum: Severe Severity in ED: Mild Pain Level: 2 Context: Location: Other - Generalized states the pain is from her vomiting. 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 Lives with: Family Family History: CAD, Hyperlipidemia, Hypertension, Malignancy Patient has suicidal ideation: No Patient has homicidal ideation: No - Past Medical History Cardiac Medical History: Reports: None Pulmonary Medical History: Reports: None EENT Medical History: Reports: None Neurological Medical History: Reports: None Endocrine Medical History: Reports: None Renal/ Medical History: Reports: Hx Kidney Stones, Hx Ovarian Cysts Malignancy Medical History: Reports: None GI Medical History: Reports: Hx Gastroesophageal Reflux Disease Musculoskeltal Medical History: Reports None Skin Medical History: Reports Hx MRSA - MRSA 06/06/08 BREAST Psychiatric Medical History: Reports: Hx Anxiety Traumatic Medical History: Reports: None Infectious Medical History: Reports: Hx MRSA Past Surgical History: Reports: Hx Cholecystectomy, Other - LSO for dermoid cyst - Immunizations Hx Diphtheria, Pertussis, Tetanus Vaccination: Yes Review of Systems - Review of Systems Constitutional: No symptoms reported EENT: No symptoms reported Cardiovascular: No symptoms reported Respiratory: No symptoms reported Gastrointestinal: Abdominal pain - epigastric pain, Nausea, Vomiting Genitourinary: No symptoms reported Female Genitourinary: Musculoskeletal: No symptoms reported Skin: No symptoms reported Hematologic/Lymphatic: No symptoms reported Neurological/Psychological: Headaches -: Yes All other systems reviewed and negative Physical Exam - Vital signs Vitals: Temp Pulse Resp BP Pulse Ox 98.8 F 16 L 100 H 131/79 H 100 09/23/16 20:03 09/23/16 20:03 09/23/16 20:03 09/23/16 20:03 09/23/16 20:03 Interpretation: Normal - General General appearance: Appears well, Alert - HEENT Head: Normocephalic, Atraumatic Eyes: Normal Pupils: PERRL - Respiratory Respiratory status: No respiratory distress Chest status: Nontender Breath sounds: Normal Chest palpation: Normal - Cardiovascular Rhythm: Regular Heart sounds: Normal auscultation Murmur: No - Abdominal Inspection: Gravid female Distension: No distension Bowel sounds: Normal Tenderness: Tender Organomegaly: No organomegaly - Back Back: Normal, Nontender - Extremities General upper extremity: Normal inspection, Nontender, Normal color, Normal ROM , Normal temperature General lower extremity: Normal inspection, Nontender, Normal color, Normal ROM , Normal temperature, Normal weight bearing. No: Kamila's sign - Neurological Neuro grossly intact: Yes Cognition: Normal Orientation: AAOx4 [place] Coma Scale Eye Opening: Spontaneous Armando Coma Scale Verbal: Oriented Armando Coma Scale Motor: Obeys Commands Armando Coma Scale Total: 15 Speech: Normal Motor strength normal: LUE, RUE, LLE, RLE Sensory: Normal - Psychological Associated symptoms: Normal affect, Normal mood - Skin Skin Temperature: Warm Skin Moisture: Dry Skin Color: Normal Course - Vital Signs Vital signs: Temp Pulse Resp BP Pulse Ox 98.8 F 100 20 111/62 100 09/23/16 20:03 09/24/16 01:40 09/24/16 01:40 09/24/16 01:40 09/24/16 01:40 - Laboratory Result Diagrams: 09/23/16 21:20 09/23/16 21:20 Laboratory results interpreted by me: 09/23/16 09/23/16 09/23/16 20:40 21:20 21:20 Hgb 11.6 L Hct 34.9 L Carbon Dioxide 21 L BUN 6 L Urine Protein 100 H Urine Ketones 20 H Ur Leukocyte Esterase MODERATE H Discharge - Discharge Clinical Impression: Nausea and vomiting during Qualifiers: Weeks of gestation: 12 weeks Qualified Code(s): Z3A.12 - 12 weeks gestation of Headache Qualifiers: Headache type: unspecified Headache chronicity pattern: unspecified pattern Intractability: not intractable Qualified Code(s): R51 - Headache Condition: Stable Disposition: HOME, SELF-CARE Additional Instructions: VOMITING: Vomiting (or nausea without vomiting) can be caused by many other different problems. It can mean that something's wrong with the stomach, such as ulcers or inflammation or the intestinal tract, such as appendicitis. But it can also be a symptom of a problem that has nothing to do with the stomach or intestines. Vomiting is common with severe headaches, earaches, tonsillitis, and kidney infections, etc. We see it with pneumonia or heart attacks. Drugs can cause nausea and vomiting. Many abdominal problems cause vomiting; for example, gallstones, kidney stones, pancreatitis, and intestinal obstruction ( blocked bowels). In most cases, curing the vomiting depends on fixing the problem that caused it. For temporary relief, we may use an anti-nausea medicine. For home use, we can prescribe suppositories, chewable pills, pills that dissolve in the mouth, or liquid anti-nausea drugs. If the vomiting seems to be caused by a problem in the stomach, acid-suppressing drugs may be prescribed as well. It's important to avoid dehydration. Sip small amounts of clear liquids ( soft drinks, tea, broth, etc) . Try to take fluids frequently even if you are vomiting to prevent dehydration. Take increasing amounts of fluid and when liquids are being consumed successfully, advance to small amounts of bland food (toast, soups, mashed potatoes, etc.) until you are able to resume a regular diet. Avoid aspirin, tobacco, and alcohol. If the vomiting worsens, if the problem that's making you vomit worsens, or if there's evidence of bleeding in the stomach (such as black, tarry stool, or bloody or black vomit), you should return immediately. Also, return if abdominal pain worsens or becomes localized to one area or you develop high fever. Call your doctor if you aren't improved in 24 hours. INTRAVENOUS (I V) FLUIDS: As part of your care today, you received intravenous (IV) fluids. IV fluids are administered to patients who are dehydrated or to those who have certain chemical (electrolyte) abnormalities that need correcting. ANTINAUSEA MEDICATION: You have been given a medication to suppress nausea and vomiting. This type of medication can be given as a shot, pill, or suppository. It will usually last for many hours. Pills and shots usually last six to eight hours. For the typical illness, only one or two doses of the medication may be necessary. Mild lightheadedness may occur. This type of medicine can cause drowsiness. Do not drive or operate dangerous machinery while under its influence. Do not mix with alcohol. See your doctor at once if you have muscle spasms or tightness, or uncontrollable motions (particularly of the neck, mouth, or jaw). Persistent vomiting or severe lightheadedness should also be evaluated by the physician. Eat small frequent meals, drink plenty of fluids, take your antinausea medicine as prescribed by your security nurse, and follow-up with your security nurse for any further complications. FOLLOW-UP CARE: If you have been referred to a physician for follow-up care, call the physician s office for an appointment as you were instructed or within the next two days. If you experience worsening or a significant change in your symptoms, notify the physician immediately or return to the Emergency Department at any time for re-evaluation. Forms: Elevated Blood Pressure, Return to Work Referrals: TON CHA MD [Primary Care Provider] - Follow up as needed
[2016-09-24 01:41] VITALS: BP 111/62
--- NOTE | 2016-09-25 13:06 | EKG REPORT ---
SEVERITY:- BORDERLINE ECG - SINUS TACHYCARDIA BORDERLINE T ABNORMALITIES, ANTERIOR LEADS : Confirmed by: Emily Adkins MD 25-Sep-2016 13:05:52
== END 2016-09-24 01:40 | disposition home or self-care (01) ==
LOC: ER 19:37
DX: O21.9 Vomiting of pregnancy, unspecified (principal); R51 Headache; R07.9 Chest pain, unspecified; Z3A.12 12 weeks gestation of pregnancy; Z87.442 Personal history of urinary calculi; Z86.14 Personal history of Methicillin resistant Staphylococcus aureus infection; Z90.49 Acquired absence of other specified parts of digestive tract
CPT/HCPCS: 93005; 99285; 96361; 96374; 96375; 36415; 85025; 80053; 81001; 93010; J1200; J2765; J7030

== ENCOUNTER 2016-10-14 22:12 | Emergency (ER) | payer MEDICAID ==
[2016-10-15] MEDS ORDERED: METOCLOPRAMIDE HCL ORAL SOLN 10 MG/10 ML UDCUP PO ONE (00:52)
[2016-10-15] MEDS ORDERED: MAG HYDROX/AL HYDROX/SIMETH SUSP 30 ML UDCUP PO ONE (00:52)
[2016-10-15] MEDS ORDERED: LIDOCAINE 2% VISCOUS SOLN 20 ML UDCUP PO ONE (00:52)
[2016-10-15] MEDS ORDERED: FAMOTIDINE 20 MG TABLET PO ONE (00:54)
[2016-10-15] MEDS ORDERED: ONDANSETRON HCL INJ/PF 4 MG/2 ML SDV IV ONE (00:54)
[2016-10-15] MEDS ORDERED: NORMAL SALINE 1000 ML 1,000 ML IV ONE (00:54)
--- NOTE | 2016-10-15 00:59 | ER Document Report ---
HPI - HPI Pain Level: 5 Notes: Patient is a 36-year-old female who is currently 5 months who presents the ED complaining of an acid reflux exacerbation. Patient states that she was here 1 month ago for similar symptoms and received a GI cocktail which helped and is requesting that this time. Patient states that she does have an occasional nausea with one episode of vomiting earlier today. Patient states that she has not been eating or drinking as much because of the acid reflux and a burning sensation in her esophagus. Patient states she has been using some Tums without any relief. The pain does not radiate. Denies any headache, fever , URI, sore throat, chest pain, palpitations, syncope, cough, shortness of breath, wheeze, dyspnea, diarrhea, urinary retention, dysuria, hematuria, vaginal discharge, or rash. - ROS Notes: REVIEW OF SYSTEMS: CONSTITUTIONAL : Denies fever, chills, or sweats. Denies recent illness. EENT: Denies eye, ear, throat, or mouth pain or symptoms. Denies nasal or sinus congestion or discharge. Denies throat, tongue, or mouth swelling or difficulty swallowing. CARDIOVASCULAR: Denies chest pain. Denies palpitations or racing or irregular heart beat. Denies ankle edema. RESPIRATORY: Denies cough, cold, or chest congestion. Denies shortness of breath, difficulty breathing, or wheezing. GASTROINTESTINAL: see hpi GENITOURINARY: Denies difficulty urinating, painful urination, burning, frequency, blood in urine, or discharge. FEMALE GENITOURINARY: Denies vaginal bleeding, heavy or abnormal periods, irregular periods. Denies vaginal discharge or odor. MUSCULOSKELETAL: Denies back or neck pain or stiffness. Denies joint pain or swelling. SKIN: Denies rash, lesions or sores. NEUROLOGICAL: Denies confusion or altered mental status. Denies passing out or loss of consciousness. Denies dizziness or lightheadedness. Denies headache. Denies weakness or paralysis or loss of use of either side. Denies problems with gait or speech. Denies sensory loss, numbness, or tingling. ALL OTHER SYSTEMS REVIEWED AND NEGATIVE. Dictation was performed using [employer] voice recognition software - REPRODUCTIVE LMP: 06-20-16 Reproductive: DENIES: : - DERM Skin Color: Normal Past Medical History - Social History Smoking Status: Unknown if Ever Smoked Family History: CAD, Hyperlipidemia, Hypertension, Malignancy Patient has suicidal ideation: No Patient has homicidal ideation: No - Past Medical History Cardiac Medical History: Denies: Hx Heart Attack, Hx Hypertension Pulmonary Medical History: Denies: Hx Asthma, Hx Bronchitis, Hx COPD, Hx Pneumonia Neurological Medical History: Denies: Hx Seizures Renal/ Medical History: Reports: Hx Kidney Stones, Hx Ovarian Cysts. Denies: Hx Peritoneal Dialysis GI Medical History: Reports: Hx Gastroesophageal Reflux Disease Musculoskeltal Medical History: Denies Hx Arthritis Skin Medical History: Reports Hx MRSA - MRSA 06/06/08 BREAST Psychiatric Medical History: Reports: Hx Anxiety Infectious Medical History: Reports: Hx MRSA Past Surgical History: Reports: Hx Cholecystectomy, Other - LSO for dermoid cyst - Immunizations Hx Diphtheria, Pertussis, Tetanus Vaccination: Yes Vertical Provider Document - CONSTITUTIONAL Agree With Documented VS: Yes Notes: PHYSICAL EXAMINATION: GENERAL: Well-appearing, well-nourished and in no acute distress. ENT: Nares patent and without discharge. oropharynx clear without exudates. No tonsilar hypertrophy or erythema. Moist mucous membranes. No sinus tenderness. NECK: Normal range of motion, supple without lymphadenopathy. LUNGS: Breath sounds clear to auscultation bilaterally and equal. No wheezes rales or rhonchi. HEART: Regular rate and rhythm without murmurs, rubs, gallops. ABDOMEN: Soft, nontender, nondistended abdomen. No guarding, no rebound. No masses appreciated. Normal bowel sounds present. No CVA tenderness bilaterally. Musculoskeletal: FROM to passive/active. Strength 5+/5. Extremities: No cyanosis, clubbing, or edema b/l. Peripheral pulses 2+. Capillary refill less than 3 seconds. NEUROLOGICAL: Normal speech, normal gait. Normal sensory, motor exams PSYCH: Normal mood, normal affect. SKIN: Warm, Dry, normal turgor, no rashes or lesions noted. - INFECTION CONTROL TRAVEL OUTSIDE OF THE [place] IN LAST 30 DAYS: No - RESPIRATORY O2 Sat by Pulse Oximetry: 89 Course - Re-evaluation Re-evalutation: 10/15/16 02:20 Patient is an afebrile, well-hydrated, 36-year-old female who presents the ED with suspected acid reflux exacerbation based on H&P today. Vitals are stable. PE otherwise unremarkable. CBC, CMP were unremarkable for any acute pathology. Urine test somehow was not received, cancelled as patient is asymptomatic and denies urinary sx's. Patient noticed immediate relief with the GI cocktail. Symptoms resolved. Pepcid 20 mg p.o. given today as well. 1 L normal saline also given today IV. Patient is able to tolerate p.o. intake. Patient states that she is feeling much better and is ready to go home. I will send her home with a prescription for carafate and Pepcid to take as prescribed/ needed. Patient is to call her [employer] at the beginning of next week for recheck. Low suspicion for any acute abdomen, acs, PE, pneumothorax, pericarditis, or dissection. Patient is aware that condition can change from initial presentation and she needs to monitor symptoms closely and seek medical attention if any acute changes. Return to the ED with any worsening/concerning symptoms otherwise as reviewed discharge. Patient is in agreement. - Vital Signs Vital signs: Temp Pulse Resp BP Pulse Ox 99 F 89 18 132/77 H 89 L 10/14/16 22:21 10/14/16 22:21 10/14/16 22:21 10/14/16 22:21 10/14/16 22:21 - Laboratory Result Diagrams: 10/15/16 01:30 10/15/16 01:30 Discharge - Discharge Clinical Impression: GERD (gastroesophageal reflux disease) Qualifiers: Esophagitis presence: esophagitis presence not specified Qualified Code(s): K21.9 - Gastro-esophageal reflux disease without esophagitis Condition: Stable Disposition: HOME, SELF-CARE Instructions: Reflux Disease (GERD) ([facility]) Additional Instructions: Maintain adequate fluid and food intake Avoid eating late at night Avoid caffeine, spicy, chocolate, carbonated beverages Eat small meals throughout the day Use Carafate as directed as primary treatment for her acid reflux if it is not helping that he may start to take the Pepcid as directed Recheck with your [employer] in 2-3 days for further evaluation and management/ guidance Consult with your PCM this week as well Return to the ED with any worsening symptoms and/or development of fever, headache, chest pain, palpitations, syncope, shortness of breath, trouble breathing, abdominal pain, n/v/d, blood in stool/urine, loss of control of bowel /bladder, vaginal bleeding/discharge, or other worsening symptoms that are concerning to you. Prescriptions: Famotidine [Pepcid 20 mg Tablet] 20 mg PO DAILY #10 tablet Sucralfate [Carafate] 1 gm PO QID PRN #420 ml PRN Reason: Forms: Elevated Blood Pressure Referrals: TON CHA MD [Primary Care Provider] - Follow up in 3-5 days [facility] [Provider Group] - Follow up in 3-5 days
[2016-10-15 01:46] LABS: ABSOLUTE BASOPHILS # (AUTO) 0.1 10^3/uL (0.0-0.2); ABSOLUTE EOSINOPHILS # (AUTO) 0.3 10^3/uL (0.0-0.6); ABSOLUTE LYMPHOCYTES (AUTO) 2.9 10^3/uL (0.5-4.7); ABSOLUTE MONOCYTES (AUTO) 0.5 10^3/uL (0.1-1.4); ABSOLUTE NEUT (AUTO) 5.8 10^3/uL (1.7-8.2); BASOPHILS % (AUTO) 0.6 % (0-2); EOSINOPHILS % (AUTO) 2.8 % (0-6); HEMATOCRIT 33.2 % (36.0-47.0); HGB HCT DIFFERENCE -0.2; LYMPHOCYTES % (AUTO) 30.7 % (13-45); MEAN CORPUSCULAR HEMOGLOBIN 29.9 pg (27.0-33.4); MEAN CORPUSCULAR HGB CONC 33.2 g/dL (32.0-36.0); MEAN CORPUSCULAR VOLUME 90 fl (80-97); RED BLOOD COUNT 3.69 10^6/uL (3.72-5.28); RED CELL DISTRIBUTION WIDTH 12.5 % (11.5-14.0); SEGMENTED NEUTROPHILS % (AUTO) 60.9 % (42-78); WHITE BLOOD COUNT 9.5 10^3/uL (4.0-10.5)
[2016-10-15 01:58] LABS: ALANINE AMINOTRANSFERASE 28 U/L (9-52); ALKALINE PHOSPHATASE 50 U/L (38-126); ANION GAP 10 (5-19); ASPARTATE AMINO TRANSFERASE 22 U/L (14-36); BILIRUBIN,DIRECT 0.4 mg/dL (0.0-0.4); BILIRUBIN,TOTAL 0.7 mg/dL (0.2-1.3); BLOOD UREA NITROGEN 4 mg/dL (7-20); CALCIUM 9.8 mg/dL (8.4-10.2); CARBON DIOXIDE 24 mmol/L (22-30); CHLORIDE 104 mmol/L (98-107); GLUCOSE 91 mg/dL (75-110); LIPASE 46.2 U/L (23-300); SODIUM 138.2 mmol/L (137-145); TOTAL PROTEIN 7.2 g/dL (6.3-8.2)
[2016-10-15 02:59] VITALS: BP 125/65
== END 2016-10-15 02:46 | disposition home or self-care (01) ==
LOC: ER 22:12
DX: K21.9 Gastro-esophageal reflux disease without esophagitis (principal)
CPT/HCPCS: 99283; 96361; 96374; 36415; 83690; 85025; 80053; J3490 ×4; J2405; J7030

== ENCOUNTER 2016-12-16 20:55 | Outpatient (CLI) | payer MEDICAID ==
[2016-12-16 21:33] LABS: APPEARANCE,URINE SLIGHTLY-CLOUDY; BILIRUBIN,URINE NEGATIVE (NEGATIVE); GLUCOSE, URINE NEGATIVE (NEGATIVE); KETONES,URINE NEGATIVE (NEGATIVE); LEUKOCYTE ESTERASE,URINE NEGATIVE (NEGATIVE); NITRITE,URINE NEGATIVE (NEGATIVE); PROTEIN,URINE NEGATIVE (NEGATIVE); URINE SPECIFIC GRAVITY 1.024
[2016-12-16 21:45] LABS: URINE BARBITURATES SCREEN NEGATIVE; URINE METHADONE SCREEN NEGATIVE; URINE OPIATES LOW NEGATIVE; URINE PHENCYCLIDINE SCREEN NEGATIVE
== END 2016-12-16 22:09 | disposition home or self-care (01) ==
LOC: LC 20:55
PROVIDERS: ATTEND Specialist
PROC: 4A1HXCZ Monitoring of Products of Conception, Cardiac Rate, External Approach (ICD-10-PCS; principal; 2016-12-16)
DX: O26.892 Other specified pregnancy related conditions, second trimester (principal); Z3A.25 25 weeks gestation of pregnancy; M54.9 Dorsalgia, unspecified
CPT/HCPCS: 80307; 81001

== ENCOUNTER 2017-02-06 15:58 | Emergency (ER) | payer MEDICAID ==
[2017-02-06 19:00] LABS: ABSOLUTE EOSINOPHILS # (AUTO) 0.2 10^3/uL (0.0-0.6); ABSOLUTE LYMPHOCYTES (AUTO) 2.4 10^3/uL (0.5-4.7); ABSOLUTE MONOCYTES (AUTO) 0.5 10^3/uL (0.1-1.4); ABSOLUTE NEUT (AUTO) 4.7 10^3/uL (1.7-8.2); BASOPHILS % (AUTO) 0.4 % (0-2); EOSINOPHILS % (AUTO) 2.3 % (0-6); HEMATOCRIT 31.1 % (36.0-47.0); HEMOGLOBIN 10.1 g/dL (12.0-15.5); HGB HCT DIFFERENCE -0.8; LYMPHOCYTES % (AUTO) 30.7 % (13-45); MEAN CORPUSCULAR HEMOGLOBIN 28.2 pg (27.0-33.4); MEAN CORPUSCULAR HGB CONC 32.4 g/dL (32.0-36.0); MEAN CORPUSCULAR VOLUME 87 fl (80-97); MONOCYTES % (AUTO) 6.2 % (3-13); RED BLOOD COUNT 3.58 10^6/uL (3.72-5.28); RED CELL DISTRIBUTION WIDTH 14.2 % (11.5-14.0); SEGMENTED NEUTROPHILS % (AUTO) 60.4 % (42-78); WHITE BLOOD COUNT 7.8 10^3/uL (4.0-10.5)
[2017-02-06 19:17] LABS: ALANINE AMINOTRANSFERASE 30 U/L (9-52); ALBUMIN 3.7 g/dL (3.5-5.0); ALKALINE PHOSPHATASE 117 U/L (38-126); ANION GAP 11 (5-19); ASPARTATE AMINO TRANSFERASE 24 U/L (14-36); BILIRUBIN,DIRECT 0.2 mg/dL (0.0-0.4); BILIRUBIN,TOTAL 0.3 mg/dL (0.2-1.3); BLOOD UREA NITROGEN 7 mg/dL (7-20); CALCIUM 9.6 mg/dL (8.4-10.2); CARBON DIOXIDE 24 mmol/L (22-30); CHLORIDE 103 mmol/L (98-107); CREATININE RESULT 0.64 mg/dL (0.52-1.25); GLUCOSE 111 mg/dL (75-110); SODIUM 138.3 mmol/L (137-145); TOTAL PROTEIN 6.7 g/dL (6.3-8.2)
--- NOTE | 2017-02-06 20:37 | EKG REPORT ---
SEVERITY:- OTHERWISE NORMAL ECG - SINUS TACHYCARDIA : Confirmed by: Stephanie Amaya 06-Feb-2017 20:36:30
--- NOTE | 2017-02-06 21:13 | ER Document Report ---
ED General - General Chief Complaint: Chest Pain Time Seen by Provider: 02/06/17 18:28 Notes: Patient is a 36-year-old female currently 33 weeks who presents with chest pain for 24 hours and dyspnea for the past 1 week. Patient states that the dyspnea has been unchanged since onset and she notices this most upon exertion. She however became concerned today when she developed a sharp, stabbing pain to the center of the chest. Notes this pain is worsened by taking a deep breath. 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 She was referred to the emergency department given her complaints. She denies any prior history of similar symptoms in the past or during her prior pregnancies. She has noted bilateral lower extremity swelling and has not noted that one side is worse than the other. She denies any history of DVT or pulmonary embolus in the past. She has not had any hemoptysis. She denies any cardiac history. No vomiting or diaphoresis. TRAVEL OUTSIDE OF THE [place] IN LAST 30 DAYS: No - Related Data Allergies/Adverse Reactions: No Known Allergies Allergy (Verified 08/05/16 11:04) Past Medical History - General Information source: Patient - Social History Smoking Status: Never Smoker Chew tobacco use (# tins/day): No Frequency of alcohol use: None Drug Abuse: None Lives with: Spouse/Significant other Family History: CAD, Hyperlipidemia, Hypertension, Malignancy Patient has suicidal ideation: No Patient has homicidal ideation: No - Past Medical History Cardiac Medical History: Denies: Hx Coronary Artery Disease, Hx Heart Attack, Hx Hypertension Pulmonary Medical History: Denies: Hx Asthma, Hx Bronchitis, Hx COPD, Hx Pneumonia Neurological Medical History: Denies: Hx Cerebrovascular Accident, Hx Seizures Renal/ Medical History: Reports: Hx Kidney Stones, Hx Ovarian Cysts. Denies: Hx Peritoneal Dialysis GI Medical History: Reports: Hx Gastroesophageal Reflux Disease Musculoskeltal Medical History: Denies Hx Arthritis Skin Medical History: Reports Hx MRSA - MRSA 06/06/08 BREAST Psychiatric Medical History: Reports: Hx Anxiety Infectious Medical History: Reports: Hx MRSA Past Surgical History: Reports: Hx Cholecystectomy, Other - LSO for dermoid cyst - Immunizations Hx Diphtheria, Pertussis, Tetanus Vaccination: Yes Review of Systems - Review of Systems Notes: Constitutional: Negative for fever. HENT: Negative for sore throat. Eyes: Negative for visual changes. Cardiovascular: Positive for chest pain. Respiratory: Positive for shortness of breath. Gastrointestinal: Negative for abdominal pain, vomiting or diarrhea. Genitourinary: Negative for dysuria. Musculoskeletal: Negative for back pain. Skin: Negative for rash. Neurological: Negative for headaches, weakness or numbness. 10 point ROS negative except as marked above and in HPI. Physical Exam - Vital signs Vitals: Temp Pulse Resp BP Pulse Ox 95.5 F L 108 H 18 125/58 L 98 02/06/17 16:34 02/06/17 16:34 02/06/17 16:34 02/06/17 16:34 02/06/17 16:34 Interpretation: Normal Notes: PHYSICAL EXAMINATION: GENERAL: Well-appearing, well-nourished and in no acute distress. HEAD: Atraumatic, normocephalic. EYES: Pupils equal round and reactive to light, extraocular movements intact, sclera anicteric, conjunctiva are normal. ENT: nares patent, oropharynx clear without exudates. Moist mucous membranes. NECK: Normal range of motion, supple without lymphadenopathy LUNGS: Breath sounds clear to auscultation bilaterally and equal. No wheezes rales or rhonchi. HEART: Regular tachycardia without murmurs ABDOMEN: Soft, gravid uterus, nontender, normoactive bowel sounds. No guarding , no rebound. No masses appreciated. EXTREMITIES: Normal range of motion, no pitting or edema. No cyanosis. NEUROLOGICAL: No focal neurological deficits. Moves all extremities spontaneously and on command. PSYCH: Normal mood, normal affect. SKIN: Warm, Dry, normal turgor, no rashes or lesions noted. Course - Re-evaluation Re-evalutation: 02/06/17 21:12 Patient presents with chest pain, sob, and is currently 33 weeks . Primary concern given her tachycardia and presentation as well as complaint of pleuritic chest pain as well as mild shortness of breath in the setting of as a possible pulmonary embolus. Her EKG is unremarkable, no ischemic changes, troponin is normal. I do not clinically suspect an aortic dissection or pneumothorax. I have had a risks and benefits conversation with the patient regarding radiation exposure versus the risks of missed PE. She is agreed to proceed with CT of the chest. 02/07/17 00:26 CT of the chest is clear without any evidence of a pulmonary embolus. Suspect likely esophageal or muscular skeletal origin of the patient's chest discomfort. At this time will discharge with return precautions and follow-up recommendations. Verbal discharge instructions given a the bedside and opportunity for questions given. Medication warnings reviewed. Patient is in agreement with this plan and has verbalized understanding of return precautions and the need for primary care follow-up in the next 24-72 hours. - Vital Signs Vital signs: Temp Pulse Resp BP Pulse Ox 95.5 F L 108 H 18 129/80 H 100 02/06/17 16:34 02/06/17 16:34 02/07/17 00:34 02/07/17 00:31 02/07/17 00:34 - Laboratory Result Diagrams: 02/06/17 18:45 02/06/17 18:45 Laboratory results interpreted by me: 02/06/17 02/06/17 18:45 18:45 RBC 3.58 L Hgb 10.1 L Hct 31.1 L RDW 14.2 H Glucose 111 H - Diagnostic Test Radiology reviewed: Reports reviewed - EKG Interpretation by Me Additional EKG results interpreted by me: 02/07/17 00:27 Sinus tachycardia. Rate 109. No ST elevations or depressions. QTC 475. Discharge - Discharge Clinical Impression: Chest pain Qualifiers: Chest pain type: unspecified Qualified Code(s): R07.9 - Chest pain, unspecified Condition: Good Disposition: HOME, SELF-CARE Additional Instructions: You were seen today for chest pain. The exact cause of your pain is unclear. However, based on your cardiac enzyme testing, chest CT, and EKG it does not appear that it is from an immediately life-threatening cause at this time. There is no evidence of a blood clot on the CT scan. Please return to emergency department immediately if you have worsening of your chest pain, shortness of breath, vomiting, become unable to exert yourself due to pain or difficulty breathing, you pass out, or have any pain that radiates into your arms, jaw, or back. Please also return if you have any additional symptoms that are concerning to you.
--- NOTE | 2017-02-06 23:40 | RADIOLOGY REPORT (SQ) ---
Exam: CTA, chest. Reason for exam, pain. COMPARISON: CR, chest, 08/28/2016. Limitations: None. TECHNIQUE: 79 mL Isovue-370 CTA of the chest performed. Creatinine 0.6. FINDINGS: No acute cardiopulmonary findings. No evidence of pulmonary embolus. No right ventricular strain. Residual thymic tissue. Inferior neck, heart, mediastinum, lungs, axillae, upper abdomen, and musculoskeleton appear otherwise unremarkable. IMPRESSION: Normal CTA of the chest.
[2017-02-07] MEDS ORDERED: LIDOCAINE 2% VISCOUS SOLN 20 ML UDCUP PO ONE (00:27)
[2017-02-07] MEDS ORDERED: METOCLOPRAMIDE HCL ORAL SOLN 10 MG/10 ML UDCUP PO ONE (00:27)
[2017-02-07 00:35] VITALS: BP 129/80
== END 2017-02-07 01:08 | disposition home or self-care (01) ==
LOC: LC 15:58 → ER 15:58 → EDSTATUS 16:16 → ER 02-07 01:08
DX: R07.9 Chest pain, unspecified (principal); R06.00 Dyspnea, unspecified; R60.0 Localized edema; Z3A.33 33 weeks gestation of pregnancy
CPT/HCPCS: 93005; 99285; 36415; 85025; 80053; 84484; 71275; 93010; J3490 ×2

== ENCOUNTER 2017-02-15 11:10 | Outpatient (CLI) | payer MEDICAID ==
--- NOTE | 2017-02-15 11:50 | Non Stress Test Report ---
Non Stress Test Datetime Report Generated by CPN: 02/15/2017 11:49 DEMOGRAPHIC EGA NST: 34.2 INDICATION Indication for Study: Ordered by Provider Indication for Study (NST) Other: AMA MONITORING Monitor Explained: Monitor Explained; Test Explained; Patient Verbalized Understanding Time on Monitor: 02/15/2017 11:19 Time off Monitor: 02/15/2017 11:43 NST Duration: 24 NST INTERVENTIONS NST Interventions: PO Hydration; Reposition Patient Physician Notified NST: Dr Mcdonald BABY A: [id number] BABY A Movement : Present Contraction Frequency : None FHR Baseline : 135 Accelerations : 15X15 Decelerations : None Variability : Moderate 6-25bpm NST Review: Meets Criteria for Reactive NST NST Review and Verified By : ELVIA Smith Results: Reactive NST REPORT Report Trigger: Send Report
== END 2017-02-15 11:46 | disposition home or self-care (01) ==
LOC: LC 11:10
PROVIDERS: ATTEND Obstetrics & Gynecology
PROC: 4A1HXCZ Monitoring of Products of Conception, Cardiac Rate, External Approach (ICD-10-PCS; principal; 2017-02-15)
DX: Z34.93 Encounter for supervision of normal pregnancy, unspecified, third trimester (principal); Z3A.34 34 weeks gestation of pregnancy
CPT/HCPCS: 59025

== ENCOUNTER 2017-02-17 10:01 | Outpatient (CLI) | payer MEDICAID ==
--- NOTE | 2017-02-17 10:42 | Non Stress Test Report ---
Non Stress Test Datetime Report Generated by CPN: 02/17/2017 10:41 DEMOGRAPHIC EGA NST: 34.4 INDICATION Indication for Study: Other Indication for Study (NST) Other: AMA MONITORING Monitor Explained: Monitor Explained; Test Explained; Patient Verbalized Understanding Time on Monitor: 02/17/2017 10:12 Time off Monitor: 02/17/2017 10:38 NST Duration: 26 NST INTERVENTIONS NST Interventions: PO Hydration Physician Notified NST: K. Thomas CNM BABY A: [id number] BABY A Movement : Present Contraction Frequency : x0 FHR Baseline : 140 Accelerations : 15X15 Decelerations : None Variability : Moderate 6-25bpm NST Review: Meets Criteria for Reactive NST NST Review and Verified By : Anjali RN NST Results: Reactive NST REPORT Report Trigger: Send Report
== END 2017-02-17 10:41 | disposition home or self-care (01) ==
LOC: LC 10:01
PROVIDERS: ATTEND Obstetrics & Gynecology
PROC: 4A1HXCZ Monitoring of Products of Conception, Cardiac Rate, External Approach (ICD-10-PCS; principal; 2017-02-17)
DX: O09.523 Supervision of elderly multigravida, third trimester (principal); Z3A.34 34 weeks gestation of pregnancy
CPT/HCPCS: 59025

== ENCOUNTER 2017-02-25 19:20 | Outpatient (CLI) | payer MEDICAID ==
[2017-02-25 20:05] LABS: APPEARANCE,URINE SLIGHTLY-CLOUDY; BILIRUBIN,URINE NEGATIVE (NEGATIVE); GLUCOSE, URINE NEGATIVE (NEGATIVE); KETONES,URINE NEGATIVE (NEGATIVE); LEUKOCYTE ESTERASE,URINE NEGATIVE (NEGATIVE); NITRITE,URINE NEGATIVE (NEGATIVE); PROTEIN,URINE NEGATIVE (NEGATIVE); URINE SPECIFIC GRAVITY 1.028
[2017-02-25 20:27] LABS: URINE BARBITURATES SCREEN NEGATIVE; URINE METHADONE SCREEN NEGATIVE; URINE OPIATES LOW NEGATIVE; URINE PHENCYCLIDINE SCREEN NEGATIVE
[2017-02-25 22:05] LABS: ABSOLUTE EOSINOPHILS # (AUTO) 0.1 10^3/uL (0.0-0.6); ABSOLUTE LYMPHOCYTES (AUTO) 2.4 10^3/uL (0.5-4.7); ABSOLUTE MONOCYTES (AUTO) 0.6 10^3/uL (0.1-1.4); ABSOLUTE NEUT (AUTO) 3.9 10^3/uL (1.7-8.2); BASOPHILS % (AUTO) 0.4 % (0-2); EOSINOPHILS % (AUTO) 1.8 % (0-6); HEMATOCRIT 28.6 % (36.0-47.0); HEMOGLOBIN 9.3 g/dL (12.0-15.5); HGB HCT DIFFERENCE -0.7; LYMPHOCYTES % (AUTO) 34.2 % (13-45); MEAN CORPUSCULAR HEMOGLOBIN 28.3 pg (27.0-33.4); MEAN CORPUSCULAR HGB CONC 32.7 g/dL (32.0-36.0); MEAN CORPUSCULAR VOLUME 87 fl (80-97); MONOCYTES % (AUTO) 8.5 % (3-13); RED CELL DISTRIBUTION WIDTH 14.2 % (11.5-14.0); SEGMENTED NEUTROPHILS % (AUTO) 55.1 % (42-78); WHITE BLOOD COUNT 7.1 10^3/uL (4.0-10.5)
== END 2017-02-25 22:40 | disposition home or self-care (01) ==
LOC: LC 19:20
PROVIDERS: ATTEND Obstetrics & Gynecology
PROC: 4A1HXCZ Monitoring of Products of Conception, Cardiac Rate, External Approach (ICD-10-PCS; principal; 2017-02-25)
DX: O47.03 False labor before 37 completed weeks of gestation, third trimester (principal); O09.523 Supervision of elderly multigravida, third trimester; Z3A.35 35 weeks gestation of pregnancy
CPT/HCPCS: 36415; 59025; 80307; 81001; 85025; 87086

== ENCOUNTER 2017-03-02 12:47 | Outpatient (CLI) | payer MEDICAID ==
[2017-03-02 13:17] LABS: APPEARANCE,URINE CLOUDY; BILIRUBIN,URINE NEGATIVE (NEGATIVE); COLOR,URINE YELLOW; GLUCOSE, URINE NEGATIVE (NEGATIVE); KETONES,URINE NEGATIVE (NEGATIVE); LEUKOCYTE ESTERASE,URINE SMALL (NEGATIVE); NITRITE,URINE NEGATIVE (NEGATIVE); PROTEIN,URINE NEGATIVE (NEGATIVE); URINE SPECIFIC GRAVITY 1.025; UROBILINOGEN,URINE NEGATIVE mg/dL (<2.0)
[2017-03-02 13:30] LABS: URINE AMPHETAMINES SCREEN NEGATIVE; URINE BARBITURATES SCREEN NEGATIVE; URINE BENZODIAZEPINES SCREEN NEGATIVE; URINE COCAINE SCREEN NEGATIVE; URINE MARIJUANA (THC) SCREEN NEGATIVE; URINE METHADONE SCREEN NEGATIVE; URINE PHENCYCLIDINE SCREEN NEGATIVE
== END 2017-03-02 13:20 | disposition home or self-care (01) ==
LOC: LC 12:47
PROVIDERS: ATTEND Obstetrics & Gynecology
PROC: 4A1HXCZ Monitoring of Products of Conception, Cardiac Rate, External Approach (ICD-10-PCS; principal; 2017-03-02)
DX: O47.03 False labor before 37 completed weeks of gestation, third trimester (principal); Z3A.36 36 weeks gestation of pregnancy
CPT/HCPCS: 59025; 80307; 81001

== ENCOUNTER 2017-03-13 14:45 | Outpatient (CLI) | payer MEDICAID ==
--- NOTE | 2017-03-13 14:58 | Non Stress Test Report ---
Non Stress Test Datetime Report Generated by CPN: 03/13/2017 14:57 DEMOGRAPHIC EGA NST: 36.3 EGA NST: 35.5 INDICATION Indication for Study: Ordered by Provider Indication for Study: Ordered by Provider; Other Indication for Study (NST) Other: labor check MONITORING Monitor Explained: Monitor Explained; Test Explained; Patient Verbalized Understanding Monitor Explained: Monitor Explained; Test Explained; Patient Verbalized Understanding Time on Monitor: 03/02/2017 12:54 Time on Monitor: 02/25/2017 19:37 Time off Monitor: 03/02/2017 13:15 Time off Monitor: 02/25/2017 22:32 NST Duration: 21 NST Duration: 175 NST INTERVENTIONS NST Interventions: None NST Interventions: None Physician Notified NST: A Hunter CNM Physician Notified NST: Cates Thomas MD BABY A: [id number] BABY A Movement : Present Movement : Present Contraction Frequency : denies Contraction Frequency : x1 FHR Baseline : 145 FHR Baseline : 140 Accelerations : 15X15 Accelerations : 15X15 Decelerations : None Decelerations : None Variability : Moderate 6-25bpm Variability : Moderate 6-25bpm NST Review: Meets Criteria for Reactive NST NST Review: Meets Criteria for Reactive NST NST Review and Verified By : Jeremias Warren RN NST Results: Reactive NST Results: Reactive NST REPORT Report Trigger: Send Report
[2017-03-13 15:30] LABS: APPEARANCE,URINE SLIGHTLY-CLOUDY; BILIRUBIN,URINE NEGATIVE (NEGATIVE); COLOR,URINE YELLOW; GLUCOSE, URINE NEGATIVE (NEGATIVE); KETONES,URINE NEGATIVE (NEGATIVE); LEUKOCYTE ESTERASE,URINE SMALL (NEGATIVE); NITRITE,URINE NEGATIVE (NEGATIVE); PROTEIN,URINE 30 mg/dL (NEGATIVE); URINE SPECIFIC GRAVITY 1.024
[2017-03-13 16:04] LABS: URINE AMPHETAMINES SCREEN NEGATIVE; URINE BARBITURATES SCREEN NEGATIVE; URINE BENZODIAZEPINES SCREEN NEGATIVE; URINE COCAINE SCREEN NEGATIVE; URINE MARIJUANA (THC) SCREEN NEGATIVE; URINE METHADONE SCREEN NEGATIVE; URINE PHENCYCLIDINE SCREEN NEGATIVE
[2017-03-13 16:49] LABS: HEMATOCRIT 34.4 % (36.0-47.0); MEAN CORPUSCULAR HEMOGLOBIN 27.5 pg (27.0-33.4); MEAN CORPUSCULAR HGB CONC 31.9 g/dL (32.0-36.0); MEAN CORPUSCULAR VOLUME 86 fl (80-97); PLATELET COUNT 185 10^3/uL (150-450); RED BLOOD COUNT 3.98 10^6/uL (3.72-5.28); RED CELL DISTRIBUTION WIDTH 15.3 % (11.5-14.0); WHITE BLOOD COUNT 8.9 10^3/uL (4.0-10.5)
[2017-03-13 17:09] LABS: ABSOLUTE LYMPHOCYTES# (MANUAL) 3.9 10^3/uL (0.5-4.7); ABSOLUTE MONOCYTES # (MANUAL) 0.4 10^3/uL (0.1-1.4); ABSOLUTE NEUTROPHILS# (MANUAL) 4.5 10^3/uL (1.7-8.2); BASOPHILS % (MANUAL) 0 % (0-2); EOSINOPHILS % (MANUAL) 1 % (0-6); LYMPHOCYTES % (MANUAL) 44 % (13-45); MONOCYTES % (MANUAL) 5 % (3-13); SEGMENTED NEUTROPHILS % (MAN) 50 % (42-78); TOTAL CELLS COUNTED 100
[2017-03-13 17:10] LABS: ANISOCYTOSIS SLIGHT; HYPOCHROMASIA SLIGHT; PLATELET COMMENT ADEQUATE
[2017-03-13] MEDS ORDERED: HYDROXYZINE PAMOATE 50 MG CAPSULE ONE (17:38)
== END 2017-03-13 17:51 | disposition home or self-care (01) ==
LOC: LC 14:45
PROVIDERS: ATTEND Obstetrics & Gynecology Gynecology
PROC: 4A1HXCZ Monitoring of Products of Conception, Cardiac Rate, External Approach (ICD-10-PCS; principal; 2017-03-13)
DX: O47.1 False labor at or after 37 completed weeks of gestation (principal); Z3A.38 38 weeks gestation of pregnancy
CPT/HCPCS: 59025; 36415; 85025; 81005; 80307; J3490

== ENCOUNTER 2017-03-20 11:24 | Outpatient (CLI) | payer MEDICAID ==
[2017-03-20 12:24] LABS: APPEARANCE,URINE SLIGHTLY-CLOUDY; BILIRUBIN,URINE NEGATIVE (NEGATIVE); COLOR,URINE YELLOW; GLUCOSE, URINE NEGATIVE (NEGATIVE); KETONES,URINE NEGATIVE (NEGATIVE); LEUKOCYTE ESTERASE,URINE TRACE (NEGATIVE); NITRITE,URINE NEGATIVE (NEGATIVE); PROTEIN,URINE NEGATIVE (NEGATIVE); URINE SPECIFIC GRAVITY 1.027
[2017-03-20 12:31] LABS: ABSOLUTE EOSINOPHILS # (AUTO) 0.1 10^3/uL (0.0-0.6); ABSOLUTE LYMPHOCYTES (AUTO) 1.6 10^3/uL (0.5-4.7); ABSOLUTE MONOCYTES (AUTO) 0.5 10^3/uL (0.1-1.4); ABSOLUTE NEUT (AUTO) 3.3 10^3/uL (1.7-8.2); BASOPHILS % (AUTO) 0.2 % (0-2); EOSINOPHILS % (AUTO) 1.2 % (0-6); HEMATOCRIT 28.2 % (36.0-47.0); HEMOGLOBIN 9.2 g/dL (12.0-15.5); LYMPHOCYTES % (AUTO) 29.7 % (13-45); MEAN CORPUSCULAR HEMOGLOBIN 27.9 pg (27.0-33.4); MEAN CORPUSCULAR HGB CONC 32.4 g/dL (32.0-36.0); MEAN CORPUSCULAR VOLUME 86 fl (80-97); MONOCYTES % (AUTO) 9.3 % (3-13); PLATELET COUNT 223 10^3/uL (150-450); RED BLOOD COUNT 3.29 10^6/uL (3.72-5.28); RED CELL DISTRIBUTION WIDTH 14.6 % (11.5-14.0); SEGMENTED NEUTROPHILS % (AUTO) 59.6 % (42-78); TOTAL CELLS COUNTED % (AUTO) 100 %; WHITE BLOOD COUNT 5.5 10^3/uL (4.0-10.5)
[2017-03-20 12:39] LABS: URINE AMPHETAMINES SCREEN NEGATIVE; URINE BARBITURATES SCREEN NEGATIVE; URINE BENZODIAZEPINES SCREEN NEGATIVE; URINE COCAINE SCREEN NEGATIVE; URINE MARIJUANA (THC) SCREEN NEGATIVE; URINE METHADONE SCREEN NEGATIVE; URINE PHENCYCLIDINE SCREEN NEGATIVE
[2017-03-20 12:43] LABS: URINE CREATININE 183.5 mg/dL (16-327); URINE PRO/CREAT RATIO RESULT CALCULATION NOT DONE mg/mg; URINE PROTEIN < 5.0 mg/dL (<12)
[2017-03-20 12:59] LABS: ALANINE AMINOTRANSFERASE 18 U/L (9-52); ALBUMIN 3.1 g/dL (3.5-5.0); ALKALINE PHOSPHATASE 140 U/L (38-126); ANION GAP 6 (5-19); ASPARTATE AMINO TRANSFERASE 15 U/L (14-36); BILIRUBIN,DIRECT 0.1 mg/dL (0.0-0.4); BILIRUBIN,TOTAL 0.3 mg/dL (0.2-1.3); BLOOD UREA NITROGEN 6 mg/dL (7-20); CARBON DIOXIDE 25 mmol/L (22-30); CHLORIDE 106 mmol/L (98-107); GLUCOSE 78 mg/dL (75-110); LDH 379 U/L (313-618); POTASSIUM 3.9 mmol/L (3.6-5.0); SODIUM 137.4 mmol/L (137-145); TOTAL PROTEIN 5.8 g/dL (6.3-8.2); URIC ACID 4.3 mg/dL (2.5-7.0)
--- NOTE | 2017-03-20 14:11 | Non Stress Test Report ---
Non Stress Test Datetime Report Generated by CPN: 03/20/2017 14:11 DEMOGRAPHIC Test Number: 1 Test Number: 1 EGA NST: 39.0 EGA NST: 38.0 INDICATION Indication for Study: Ordered by Provider Indication for Study: Ordered by Provider Indication for Study (NST) Other: Pre e workup Indication for Study (NST) Other: LC MONITORING Monitor Explained: Monitor Explained; Test Explained Monitor Explained: Monitor Explained; Test Explained; Patient Verbalized Understanding Time on Monitor: 03/20/2017 11:35 Time on Monitor: 03/13/2017 14:58 Time off Monitor: 03/20/2017 11:59 Time off Monitor: 03/13/2017 16:43 NST Duration: 24 NST Duration: 105 NST INTERVENTIONS NST Interventions: PO Hydration; Reposition Patient NST Interventions: None NST Interventions: IV Fluids Physician Notified NST: Sophia Hunter CNM Physician Notified NST: Sophia Darnell CNM BABY A: [id number] Movement : Present Movement : Present Contraction Frequency : 0 FHR Baseline : 140 FHR Baseline : 150 Accelerations : 15X15 Accelerations : 15X15 Decelerations : None Decelerations : None Variability : Moderate 6-25bpm Variability : Moderate 6-25bpm NST Review: Meets Criteria for Reactive NST NST Review: Meets Criteria for Reactive NST NST Review and Verified By : Marques Aparicio RN NST Results: Reactive NST Results: Reactive NST REPORT Report Trigger: Send Report
== END 2017-03-20 14:15 | disposition home or self-care (01) ==
LOC: LC 11:24
PROVIDERS: ATTEND Obstetrics & Gynecology
PROC: 4A1HXCZ Monitoring of Products of Conception, Cardiac Rate, External Approach (ICD-10-PCS; principal; 2017-03-20)
DX: O14.93 Unspecified pre-eclampsia, third trimester (principal); O09.523 Supervision of elderly multigravida, third trimester; Z3A.39 39 weeks gestation of pregnancy
CPT/HCPCS: 36415; 59025; 80053; 80307; 81001; 82570; 83615; 84156; 84550; 85025

== ENCOUNTER 2017-03-22 09:59 | Inpatient (IN) | payer MEDICAID ==
[2017-03-22 10:46] LABS: APPEARANCE,URINE SLIGHTLY-CLOUDY; BILIRUBIN,URINE NEGATIVE (NEGATIVE); COLOR,URINE YELLOW; GLUCOSE, URINE NEGATIVE (NEGATIVE); KETONES,URINE NEGATIVE (NEGATIVE); LEUKOCYTE ESTERASE,URINE TRACE (NEGATIVE); NITRITE,URINE NEGATIVE (NEGATIVE); PROTEIN,URINE NEGATIVE (NEGATIVE); URINE SPECIFIC GRAVITY 1.023
[2017-03-22 11:06] LABS: URINE AMPHETAMINES SCREEN NEGATIVE; URINE BARBITURATES SCREEN NEGATIVE; URINE BENZODIAZEPINES SCREEN NEGATIVE; URINE COCAINE SCREEN NEGATIVE; URINE MARIJUANA (THC) SCREEN NEGATIVE; URINE METHADONE SCREEN NEGATIVE; URINE PHENCYCLIDINE SCREEN NEGATIVE
[2017-03-22] MEDS ORDERED: DINOPROSTONE 10 MG VAGINAL INSERT.SR PV PRN (11:20)
[2017-03-22] MEDS ORDERED: OXYTOCIN/NORMAL SALINE 20 UNIT/1,000 ML RTUINJ IV PRN ×2 (11:20→13:58)
[2017-03-22] MEDS ORDERED: RINGERS SOLUTION,LACTATED 300 ML IV ONE (11:20)
[2017-03-22] MEDS ORDERED: RINGERS SOLUTION,LACTATED 1,000 ML IV PRN (11:20)
[2017-03-22] MEDS ORDERED: NORMAL SALINE 250 ML IV PRN (13:01)
[2017-03-22 13:14] LABS: ABSOLUTE EOSINOPHILS # (AUTO) 0.1 10^3/uL (0.0-0.6); ABSOLUTE LYMPHOCYTES (AUTO) 1.9 10^3/uL (0.5-4.7); ABSOLUTE MONOCYTES (AUTO) 0.6 10^3/uL (0.1-1.4); ABSOLUTE NEUT (AUTO) 3.3 10^3/uL (1.7-8.2); BASOPHILS % (AUTO) 0.4 % (0-2); EOSINOPHILS % (AUTO) 1.4 % (0-6); HEMATOCRIT 30.3 % (36.0-47.0); HEMOGLOBIN 9.7 g/dL (12.0-15.5); LYMPHOCYTES % (AUTO) 32.6 % (13-45); MEAN CORPUSCULAR HEMOGLOBIN 27.4 pg (27.0-33.4); MEAN CORPUSCULAR HGB CONC 32.1 g/dL (32.0-36.0); MEAN CORPUSCULAR VOLUME 85 fl (80-97); MONOCYTES % (AUTO) 9.6 % (3-13); PLATELET COUNT 247 10^3/uL (150-450); RED BLOOD COUNT 3.55 10^6/uL (3.72-5.28); RED CELL DISTRIBUTION WIDTH 14.7 % (11.5-14.0); TOTAL CELLS COUNTED % (AUTO) 100 %; WHITE BLOOD COUNT 5.8 10^3/uL (4.0-10.5)
[2017-03-22] MEDS ORDERED: MISOPROSTOL 0.2 MG TABLET ONE (13:54)
[2017-03-22] MEDS ORDERED: LIDOCAINE 1% INJ-PF (10 MG/ML) 30 ML SDV ONE (13:55)
[2017-03-22] MEDS ORDERED: OXYTOCIN/NORMAL SALINE 40 UNIT/2,000 ML RTUINJ ONE (13:55)
--- NOTE | 2017-03-22 13:56 | L&D Progress Notes ---
PROGRESS NOTES Datetime Report Generated by CPN: 03/22/2017 13:56 PROGRESS NOTE Impression: Normal Progression of Labor Impression: Normal Progression of Labor Procedures: Artificial ROM Plan: Continue Present Management Informed Consent Obtained: Risks, Benefits and Alternatives Discussed Vital Signs : Reviewed Comment: initially delayed starting pitocin tracing reactive sve reveals presenting part descended 4/80/-2 AROM clear start pitocin ctx q 2-5 min plan of care reviewed with pt pain management prn MEMBRANES Membranes: Intact FETUS A FHR - Baseline: 130 Monitoring: External US Variability: Moderate 6-25bpm Accelerations: 15X15 Decelerations: Late FHR Category: Category I : 39.0 : 39.2 SIGNATURE SIGNATURE: [id number] SIGNATURE: [id number] SIGNATURE: [id number] SIGNATURE: [id number] SIGNATURE: [id number] Assignment: Moses Drake MD Signature: with User ID: [email or web address] : with User ID: [email or web address]
[2017-03-22] MEDS ORDERED: EPHEDRINE SULFATE INJ 50 MG/1 ML AMPULE ONE (14:23)
[2017-03-22] MEDS ORDERED: FENTANYL/BUPIVACAINE/NS/PF 200 MCG/100 ML RTUINJ EPI ONE (14:24)
[2017-03-22] MEDS ORDERED: BUPIVACAINE HCL 0.25 % INJ/PF (2.5 MG/1 ML) 30 ML VIAL ONE (14:24)
[2017-03-22] MEDS ORDERED: FENTANYL CITRATE INJ/PF 100 MCG/2 ML AMPUL ONE (14:47)
--- NOTE | 2017-03-22 15:38 | L&D Progress Notes ---
PROGRESS NOTES Datetime Report Generated by CPN: 03/22/2017 15:38 PROGRESS NOTE Comment: update early decelerations and prolonged deceleration FHTs 155 pt to hands and knees O2 via facemask pitocin off heart tones recovered pt in pain and requests pain medicine fluid bolus iv pain medicine while waiting for epidural FETUS A Monitoring: External US FETUS C SIGNATURE: [id number];[id number] Assignment: Moses Drake MD Signature: with User ID: [email or web address] : with User ID: [email or web address]
[2017-03-22] MEDS ORDERED: ACETAMINOPHEN WITH CODEINE #3 TABLET PO PRN (20:15)
[2017-03-22] MEDS ORDERED: PROMETHAZINE HCL 25 MG SUPP.RECT PR PRN (20:15)
[2017-03-22] MEDS ORDERED: DIPHENHYDRAMINE HCL 25 MG CAPSULE PO PRN (20:15)
[2017-03-22] MEDS ORDERED: DIPH/PERTUSS(ACELL)/TETANUS VAC/PF 0.5 ML SYR (>=10YO) IM PRN (20:15)
[2017-03-22] MEDS ORDERED: PROMETHAZINE HCL 25 MG TABLET PO PRN (20:15)
[2017-03-22] MEDS ORDERED: PSEUDOEPHEDRINE HCL 30 MG TABLET PO PRN (20:15)
[2017-03-22] MEDS ORDERED: DIBUCAINE 1% OINTMENT 28 GM TP PRN (20:15)
[2017-03-22] MEDS ORDERED: GLYCERIN/WITCH HAZEL LEAF 1 EACH MED..PAD TP PRN (20:15)
[2017-03-22] MEDS ORDERED: NA PHOS,M-B/NA PHOS,DI-BA (ADULT) 133 ML ENEMA PR PRN (20:15)
[2017-03-22] MEDS ORDERED: BENZOCAINE/MENTHOL AEROSOL SPRAY 56 ML TOP PRN (20:15)
[2017-03-22] MEDS ORDERED: PROMETHAZINE HCL INJ 25 MG/1 ML VIAL IV PRN (20:15)
[2017-03-22] MEDS ORDERED: ACETAMINOPHEN 650 MG SUPP.RECT PR PRN (20:15)
[2017-03-22] MEDS ORDERED: MAGNESIUM HYDROXIDE SUSP 30 ML UDCUP PO PRN (20:15)
[2017-03-22] MEDS ORDERED: ZOLPIDEM TARTRATE 5 MG TABLET PO PRN (20:15)
[2017-03-22] MEDS ORDERED: MEASLES,MUMPS&RUBELLA VACC/PF 0.5 ML VIAL SUBCUT PRN (20:15)
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
[2017-03-22] MEDS: IBUPROFEN 800 MG TABLET PO SCH (21:50)
[2017-03-22] MEDS: FAMOTIDINE 20 MG TABLET PO SCH (21:51)
[2017-03-22] MEDS: ACETAMINOPHEN WITH CODEINE #3 TABLET PO PRN (23:17)
[2017-03-23] MEDS: IBUPROFEN 800 MG TABLET PO SCH ×3 (06:02→21:50)
[2017-03-23 07:45] LABS: HEMATOCRIT 28.3 % (36.0-47.0); HEMOGLOBIN 9.2 g/dL (12.0-15.5); MEAN CORPUSCULAR HEMOGLOBIN 27.9 pg (27.0-33.4); MEAN CORPUSCULAR HGB CONC 32.5 g/dL (32.0-36.0); MEAN CORPUSCULAR VOLUME 86 fl (80-97); PLATELET COUNT 213 10^3/uL (150-450); RED BLOOD COUNT 3.29 10^6/uL (3.72-5.28); RED CELL DISTRIBUTION WIDTH 14.9 % (11.5-14.0)
[2017-03-23 07:48] LABS: WHITE BLOOD COUNT 13.3 10^3/uL (4.0-10.5)
[2017-03-23] MEDS: SENNOSIDES/DOCUSATE 8.6-50 MG 1 EACH TABLET PO SCH (10:54)
[2017-03-23] MEDS: DOCUSATE SODIUM 100 MG CAPSULE PO SCH ×2 (10:54→18:14)
[2017-03-23] MEDS: FAMOTIDINE 20 MG TABLET PO SCH ×2 (10:55→21:50)
[2017-03-23] MEDS: PRENATAL VITAMIN W DHA CAPSULE PO SCH (10:56)
[2017-03-23] MEDS: FERROUS SULFATE 325 MG TABLET PO SCH ×2 (10:56→18:15)
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
[2017-03-23] MEDS: ACETAMINOPHEN WITH CODEINE #3 TABLET PO PRN (20:17)
[2017-03-24] MEDS: IBUPROFEN 800 MG TABLET PO SCH ×2 (05:25→13:14)
[2017-03-24] MEDS: FERROUS SULFATE 325 MG TABLET PO SCH (09:44)
[2017-03-24] MEDS: PRENATAL VITAMIN W DHA CAPSULE PO SCH (09:44)
[2017-03-24] MEDS: SENNOSIDES/DOCUSATE 8.6-50 MG 1 EACH TABLET PO SCH (09:45)
[2017-03-24] MEDS: DOCUSATE SODIUM 100 MG CAPSULE PO SCH (09:45)
[2017-03-24] MEDS: FAMOTIDINE 20 MG TABLET PO SCH (09:46)
--- NOTE | 2017-03-24 12:15 | PDOC DISCHARGE SUMMARY ---
Discharge Summary (SDC) - Discharge Final Diagnosis: s/p vaginal delivery Condition: Good Prescriptions: Ibuprofen [Motrin 800 mg Tablet] 800 mg PO Q8 #60 tablet Referrals: MARNIE BALBUENA MD [Primary Care Provider] - Discharge Diet: Regular Discharge Activity: Balance Activity w/Rest, Pelvic Rest Home Care Assistance: None Needed Report the Following to Your Physician Immediately: Fever over 101 Degrees, Unusual Bleeding, Large Clots, IV Site Infection Signs, Urinary Infection Signs
[2017-03-24 12:20] VITALS: BP 132/81
[2017-03-24] MEDS: ACETAMINOPHEN WITH CODEINE #3 TABLET PO PRN (13:15)
--- NOTE | 2017-03-29 09:52 | Delivery Summary ---
Del Sum A-C Datetime Report Generated by CPN: 03/29/2017 09:51 DELIVERY PERSONNEL DELIVERY PERSONNEL: [id number] Delivery Doctor:: Phillip Darnell CNM Labor and Delivery Nurse:: Chace Candelario RN Drug Abuse Social Worker/DATA INTEGRATION ARCHITECT: Ginger Jassohens, DATA INTEGRATION ARCHITECT II Drug Abuse Social Worker/DATA INTEGRATION ARCHITECT: Shyla Busby, ST MATERNAL INFORMATION Delivery Anesthesia: Epidural Medications After Delivery: Pitocin Drip 20 Units/1000ml NSS Estimated Blood Loss (ml): 300 Maternal Complications: None Provider Comments: pt with increased urge to push bed prepared for delivery zurita removed delivery of viable baby boy apgars 9/9 continuous push delivered in OA moderate meconium noted bulb suctioned and placed on maternal abdomen spontaneous cry with minimal stimulation cord clamped cut by FOB cord blood obtained placenta intact and delivered still fashion ebl 300 cc 1st vaginal laceration repaired under epidural hemostasis achieved LABOR SUMMARY EDC: 03/27/2017 00:00 No. Babies in Womb: 1 Attempted: No Labor Anesthesia: Epidural LABOR INFORMATION Reason for Induction: Gestational Hypertension Onset of Labor: 03/22/2017 14:00 Complete Dilatation: 03/22/2017 18:32 Oxytocin: Induction Group B Beta Strep: negative Antibiotics # of Doses: 0 Antibiotics Time of Last Dose: n/a Name of Antibiotic Given: n/a Steroids Given: None Reason Steroids Not Administered: Not Applicable Other Reason Not Administered: n/a MEMBRANES Membranes Rupture Method: Artificial Membranes Rupture Method: Artificial Rupture of Membranes: 03/22/2017 14:00 Length of Rupture (hr): 4.67 Amniotic Fluid Color: Clear Amniotic Fluid Color: Moderate Meconium Amniotic Fluid Amount: Small Amniotic Fluid Amount: Small Amniotic Fluid Odor: Normal Amniotic Fluid Odor: Normal STAGES OF LABOR Stage 1 hr: 4 Stage 1 min: 32 Stage 2 hr: 0 Stage 2 min: 8 Stage 3 hr: 0 Stage 3 min: 2 Total Time in Labor hr: 4 Total Time in Labor min: 42 VAGINAL DELIVERY Episiotomy: None Laceration #1: Vaginal Laceration Extension #1: First Degree Laceration Repair: Yes CSECTION DELIVERY Primary Indication: N/A Secondary Indication: N/A CSection Incidence: N/A Labor: N/A Elective: N/A CSection Incision: N/A BABY A INFORMATION Delivery Date/Time: 03/22/2017 18:40 Method of Delivery: Vaginal Born in Route : No : N/A Forceps: N/A Vacuum Extraction: N/A Shoulder Dystocia : No PRESENTATION/POSITION BABY A Presentation: Cephalic Cephalic Presentation: Vertex Vertex Position: Right Occipital Anterior Breech Presentation: N/A PLACENTA INFORMATION BABY A Placenta Delivery Time : 03/22/2017 18:42 Placenta Method of Delivery: Spontaneous Placenta Status: Delivered SCORES BABY A Heart Rate 1 min: >100 bpm Resp Effort 1 min: Good Cry Reflex Irritability 1 min: Cough or Sneeze or Pulls Away Muscle Tone 1 min: Active Motion Color 1 min: Body Homer, Extremities Blue Resuscitation Effort 1 min: Tactile Stimulation SCORE 1 MIN: 9 Heart Rate 5 min: >100 bpm Resp Effort 5 min: Good Cry Reflex Irritability 5 min: Cough or Sneeze or Pulls Away Muscle Tone 5 min: Active Motion Color 5 min: Body Homer, Extremities Blue Resuscitation Effort 5 min: Tactile Stimulation SCORE 5 MIN: 9 INFORMATION BABY A Gestational Age at Delivery: 39.2 Gestational Status: Full Term- 39- 40.6 Weeks Infant Outcome : Liveborn Infant Condition : Stable Sex: Male IDENTIFICATION BABY A Verification Date/Time: 03/22/2017 18:46 ID Band Number: [id number] Mother's Name Verified: Yes Infant RN Verifying : A. Babine RN/ C. Cassia RN WEIGHT/LENGTH BABY A Infant Birthweight (gm): 3690 Infant Weight (lb): 8 Infant Weight (oz): 2 Infant Length (in): 21.25 Length (cm): 53.98 CORD INFORMATION BABY A No. Cord Vessels: 3 Nuchal Cord : N/A Cord Blood Taken: Yes-For Storage (Mom's Blood type +) Suction: Mouth; Nose ASSESSMENT BABY A Skin to Skin: Yes SIGNATURES Assignment: Moses Drake MD Signature: with User ID: [email or web address] : with User ID: [email or web address]
--- NOTE | 2017-03-29 14:30 | Delivery Summary ---
Del Sum A-C Datetime Report Generated by CPN: 03/29/2017 14:30 DELIVERY PERSONNEL DELIVERY PERSONNEL: [id number] Delivery Doctor:: Phillip Darnell CNM Labor and Delivery Nurse:: Chace Candelario RN Tangible Personal Property Appraiser/HELICOPTER MECHANIC: Ginger Jassohens, HELICOPTER MECHANIC II Tangible Personal Property Appraiser/HELICOPTER MECHANIC: Shyla Busby, ST MATERNAL INFORMATION Delivery Anesthesia: Epidural Medications After Delivery: Pitocin Drip 20 Units/1000ml NSS Estimated Blood Loss (ml): 300 Maternal Complications: None Provider Comments: pt with increased urge to push bed prepared for delivery zurita removed delivery of viable baby boy apgars 9/9 continuous push delivered in OA moderate meconium noted bulb suctioned and placed on maternal abdomen spontaneous cry with minimal stimulation cord clamped cut by FOB cord blood obtained placenta intact and delivered still fashion ebl 300 cc 1st vaginal laceration repaired under epidural hemostasis achieved LABOR SUMMARY EDC: 03/27/2017 00:00 No. Babies in Womb: 1 Attempted: No Labor Anesthesia: Epidural LABOR INFORMATION Reason for Induction: Gestational Hypertension Onset of Labor: 03/22/2017 14:00 Complete Dilatation: 03/22/2017 18:32 Oxytocin: Induction Group B Beta Strep: negative Antibiotics # of Doses: 0 Antibiotics Time of Last Dose: n/a Name of Antibiotic Given: n/a Steroids Given: None Reason Steroids Not Administered: Not Applicable Other Reason Not Administered: n/a MEMBRANES Membranes Rupture Method: Artificial Membranes Rupture Method: Artificial Rupture of Membranes: 03/22/2017 14:00 Length of Rupture (hr): 4.67 Amniotic Fluid Color: Clear Amniotic Fluid Color: Moderate Meconium Amniotic Fluid Amount: Small Amniotic Fluid Amount: Small Amniotic Fluid Odor: Normal Amniotic Fluid Odor: Normal STAGES OF LABOR Stage 1 hr: 4 Stage 1 min: 32 Stage 2 hr: 0 Stage 2 min: 8 Stage 3 hr: 0 Stage 3 min: 2 Total Time in Labor hr: 4 Total Time in Labor min: 42 VAGINAL DELIVERY Episiotomy: None Laceration #1: Vaginal Laceration Extension #1: First Degree Laceration Repair: Yes CSECTION DELIVERY Primary Indication: N/A Secondary Indication: N/A CSection Incidence: N/A Labor: N/A Elective: N/A CSection Incision: N/A BABY A INFORMATION Delivery Date/Time: 03/22/2017 18:40 Method of Delivery: Vaginal Born in Route : No : N/A Forceps: N/A Vacuum Extraction: N/A Shoulder Dystocia : No PRESENTATION/POSITION BABY A Presentation: Cephalic Cephalic Presentation: Vertex Vertex Position: Right Occipital Anterior Breech Presentation: N/A PLACENTA INFORMATION BABY A Placenta Delivery Time : 03/22/2017 18:42 Placenta Method of Delivery: Spontaneous Placenta Status: Delivered SCORES BABY A Heart Rate 1 min: >100 bpm Resp Effort 1 min: Good Cry Reflex Irritability 1 min: Cough or Sneeze or Pulls Away Muscle Tone 1 min: Active Motion Color 1 min: Body [place], Extremities Blue Resuscitation Effort 1 min: Tactile Stimulation SCORE 1 MIN: 9 Heart Rate 5 min: >100 bpm Resp Effort 5 min: Good Cry Reflex Irritability 5 min: Cough or Sneeze or Pulls Away Muscle Tone 5 min: Active Motion Color 5 min: Body [place], Extremities Blue Resuscitation Effort 5 min: Tactile Stimulation SCORE 5 MIN: 9 INFORMATION BABY A Gestational Age at Delivery: 39.2 Gestational Status: Full Term- 39- 40.6 Weeks Infant Outcome : Liveborn Infant Condition : Stable Sex: Male IDENTIFICATION BABY A Verification Date/Time: 03/22/2017 18:46 ID Band Number: [id number] Mother's Name Verified: Yes Infant RN Verifying : A. Babine RN/ C. Johnson RN WEIGHT/LENGTH BABY A Infant Birthweight (gm): 3690 Infant Weight (lb): 8 Infant Weight (oz): 2 Infant Length (in): 21.25 Length (cm): 53.98 CORD INFORMATION BABY A No. Cord Vessels: 3 Nuchal Cord : N/A Cord Blood Taken: Yes-For Storage (Mom's Blood type +) Suction: Mouth; Nose ASSESSMENT BABY A Skin to Skin: Yes SIGNATURES Assignment: Moses Drake MD Signature: with User ID: [email or web address] : with User ID: [email or web address]
== END 2017-03-24 15:51 | disposition home or self-care (01) | DRG 775 ==
LOC: LC 09:59 → LR 11:25 → 2S 20:45
PROVIDERS: ADMIT Obstetrics & Gynecology Gynecology; ATTEND Obstetrics & Gynecology Gynecology
PROC: 10E0XZZ Delivery of Products of Conception, External Approach (ICD-10-PCS; principal; 2017-03-22)
PROC: 0HQ9XZZ Repair Perineum Skin, External Approach (ICD-10-PCS; 2017-03-22)
DX: O13.4 Gestational [pregnancy-induced] hypertension without significant proteinuria, complicating childbirth (principal); O99.344 Other mental disorders complicating childbirth; O99.214 Obesity complicating childbirth; O99.334 Smoking (tobacco) complicating childbirth; O70.0 First degree perineal laceration during delivery; F41.9 Anxiety disorder, unspecified; E66.01 Morbid (severe) obesity due to excess calories; Z68.36 Body mass index [BMI] 36.0-36.9, adult; Z3A.39 39 weeks gestation of pregnancy; Z37.0 Single live birth
CPT/HCPCS: 36415; 80307; 81005; 85025; 85027; 86592; 86850; 86900; 86901; 86920; 86922; 88307; J2590; J3010; J3490

== ENCOUNTER 2017-11-11 01:55 | Emergency (ER) | payer SELFPAY ==
--- NOTE | 2017-11-11 03:44 | ER Document Report ---
ED GI/ - General Mode of Arrival: Ambulatory Information source: Patient TRAVEL OUTSIDE OF THE [place] IN LAST 30 DAYS: No <SHABNAM ENGLE - Last Filed: 11/11/17 04:02> <HELLEN ALLAN - Last Filed: 11/11/17 06:29> - General Chief Complaint: Back Pain Stated Complaint: BACK PAIN Time Seen by Provider: 11/11/17 03:31 Notes: 37-year-old female who presents to the emergency department today with complaints of left-sided back pain for the last 2 days. Patient states she has a history of kidney stones and her symptoms today are similar to her kidney stones in the past. Patient has had a left salpingo-oophorectomy. Patient states she has had associated nausea and vomiting but denies hematuria. (SHABNAM ENGLE) The patient has had chronic low back pain since she delivered in March of this year. She states she has not been to see her primary care provider to discuss this ongoing chronic pain that she has. (HELLEN ALLAN) - Related Data Allergies/Adverse Reactions: No Known Allergies Allergy (Verified 03/22/17 10:39) Past Medical History - General Information source: Patient - Social History Smoking Status: Current Every Day Smoker Cigarette use (# per day): Yes Frequency of alcohol use: None Drug Abuse: None Lives with: Family Family History: Reviewed & Not Pertinent, CAD, Hyperlipidemia, Hypertension, Malignancy Renal/ Medical History: Reports: Hx Kidney Stones, Hx Ovarian Cysts GI Medical History: Reports: Hx Gastroesophageal Reflux Disease Skin Medical History: Reports Hx MRSA - MRSA 06/06/08 BREAST Psychiatric Medical History: Reports: Hx Anxiety Infectious Medical History: Reports: Hx MRSA Past Surgical History: Reports: Hx Cholecystectomy, Hx Gynecologic Surgery - Left salpingo-oophorectomy, Other - LSO for dermoid cyst - Immunizations Hx Diphtheria, Pertussis, Tetanus Vaccination: Yes <SHABNAM ENGLE - Last Filed: 11/11/17 04:02> Review of Systems - Review of Systems Constitutional: No symptoms reported EENT: No symptoms reported Cardiovascular: No symptoms reported Respiratory: No symptoms reported Gastrointestinal: See HPI, Nausea, Vomiting Genitourinary: See HPI, Flank pain - Left. denies: Hematuria Female Genitourinary: No symptoms reported Musculoskeletal: No symptoms reported Skin: No symptoms reported Hematologic/Lymphatic: No symptoms reported Neurological/Psychological: No symptoms reported -: Yes All other systems reviewed and negative <SHABNAM ENGLE - Last Filed: 11/11/17 04:02> - Review of Systems Musculoskeletal: Back pain - Chronic low back pain since March 2017. <SANJANAHELLEN - Last Filed: 11/11/17 06:29> Physical Exam <SHABNAM ENGLE - Last Filed: 11/11/17 04:02> <HELLEN ALLAN - Last Filed: 11/11/17 06:29> - Vital signs Vitals: Temp Pulse Resp BP Pulse Ox 97.9 F 89 18 121/79 98 11/11/17 02:07 11/11/17 02:07 11/11/17 02:07 11/11/17 02:07 11/11/17 02:07 - Notes Notes: Physical Exam: General: Alert, appears well. HEENT: Normocephalic. Atraumatic. PERRL. Extraocular movements intact. Oropharynx clear. Neck: Supple. Non-tender. Respiratory: No respiratory distress. Clear and equal breath sounds bilaterally. Cardiovascular: Regular rate and rhythm. Abdominal: LLQ tenderness with palpation. No distension. Normal Bowel Sounds. Back: Lower thoracic and lumbar paraspinal musculature tenderness with palpation. No deformity or step off. Extremities: Moves all four extremities. Upper extremities: Normal inspection. Normal ROM. Lower extremities: Normal inspection. No edema. Normal ROM. Neurological: Normal cognition. AAOx4. Normal speech. Psychological: Normal affect. Normal Mood. Skin: Warm. Dry. Normal color. (CELIA ENGLEON) - Vital Signs Vital signs: Temp Pulse Resp BP Pulse Ox 97.9 F 89 18 121/79 98 11/11/17 02:07 11/11/17 02:07 11/11/17 02:07 11/11/17 02:07 11/11/17 02:07 - Laboratory Laboratory results interpreted by me: 11/11/17 04:00 Ur Leukocyte Esterase SMALL H Discharge <SHABNAM ENGLE - Last Filed: 11/11/17 04:02> <HELLEN ALLAN - Last Filed: 11/11/17 06:29> - Discharge Clinical Impression: Urinary tract infection Qualifiers: Urinary tract infection type: site unspecified Hematuria presence: with hematuria Qualified Code(s): N39.0 - Urinary tract infection, site not specified ; R31.9 - Hematuria, unspecified; R31.9 - Hematuria, unspecified Chronic low back pain Qualifiers: Back pain laterality: bilateral Sciatica presence: without sciatica Qualified Code(s): M54.5 - Low back pain; G89.29 - Other chronic pain; G89.29 - Other chronic pain Additional Instructions: Urinary Tract Infection: Your evaluation suggests that you have a urinary tract infection. This is due to germs growing in the bladder. This is a common problem. This infection usually responds quickly to antibiotics. Your antibiotic should be taken exactly as prescribed. Drink plenty of fluids -- three to four quarts a day. Certain urine infections require a culture. If the doctor obtained a culture, the results will be back in two days. You should call to see if a change in treatment is needed. A repeat urinalysis after you finish treatment is often recommended. The physician will let you know if further testing is required. Call the doctor if you develop fever, chills, flank pain, inability to urinate, or blood in the urine. Chronic Back Pain: Chronic back pain (pain persisting longer than three months) is a common problem. A medical evaluation can look for herniated disc, arthritis, osteoporosis, tumors, and infections. But at least half the time, there's no obvious treatable cause. Anxiety and depression tend to worsen back pain. Ibuprofen or other anti-inflammatory medicine can help. A heating pad, used for 15-20 minutes at a time, can ease pain. For this type of back pain, narcotic medicines should be avoided. Muscle relaxers are rarely helpful unless you're having spasms. Activity is important. Find an aerobic exercise program that your back can tolerate. Too much rest makes back pain worse. Specific back exercises are usually prescribed to strengthen the back and abdominal muscles. Often, a physical therapist can help. Avoid heavy lifting, working while bent over, or standing with both knees straight. Most back pain patients do better with a firm mattress. If new symptoms of a "herniated disc" (radiation of pain, numbness, or tingling down the back of the leg or weakness in the leg) occur, you should be re-examined. Take the medications as prescribed for possible urinary tract infection. Drink plenty of fluids to help flush out your bladder. Take Tylenol and ibuprofen for low back pain if needed. Follow-up with your primary care provider this week if your newer symptoms are not improving. Discuss your chronic low back pain with your primary care provider to see if further evaluation is necessary. RETURN TO THE EMERGENCY ROOM IF ANY NEW OR WORSENING SYMPTOMS. Prescriptions: Cephalexin Monohydrate [Keflex 500 mg Capsule] 500 mg PO TID #15 capsule Referrals: MARNIE BALBUENA MD [Primary Care Provider] - Follow up as needed Elyssaibe Attestation: 11/11/17 04:55 I personally performed the services described in the documentation, reviewed and edited the documentation which was dictated to the scribe in my presence, and it accurately records my words and actions. (HELLEN ALLAN) Scribe Documentation - Scribe Written by Candido:: Candido Ramirez, 11/11/2017 0406 acting as scribe for :: Sanjana <SHABNAM ENGLE - Last Filed: 11/11/17 04:02>
[2017-11-11 04:53] LABS: APPEARANCE,URINE SLIGHTLY-CLOUDY; BILIRUBIN,URINE NEGATIVE (NEGATIVE); COLOR,URINE YELLOW; GLUCOSE, URINE NEGATIVE (NEGATIVE); KETONES,URINE NEGATIVE (NEGATIVE); LEUKOCYTE ESTERASE,URINE SMALL (NEGATIVE); NITRITE,URINE NEGATIVE (NEGATIVE); PROTEIN,URINE NEGATIVE (NEGATIVE); URINE SPECIFIC GRAVITY 1.028; UROBILINOGEN,URINE NEGATIVE mg/dL (<2.0)
--- NOTE | 2017-11-11 06:15 | RADIOLOGY REPORT (SQ) ---
CLINICAL DATA: 37-year-old female with left lower quadrant pain, left flank pain and hematuria TECHNICAL DATA: Axial CT imaging of the abdomen and pelvis was performed. Sagittal and coronal reconstructed images were then performed. The CT study is performed according to ALARA (as low as reasonably achievable) or ALARA/IMAGE GENTLY, with automatic adjustment of mA and/or kV according to patient size. Comparison: Prior CT abdomen and pelvis performed on 10/21/2015. FINDINGS: Lung bases: The lung bases are clear. Liver:The liver is normal in size and configuration. No focal hepatic abnormalities are appreciated on this unenhanced scan. Liver attenuation is within normal limits. Spleen:The spleen is normal is size, configuration and attenuation. No focal splenic abnormalities are appreciated on this unenhanced scan. Gallbladder and bile duct: The gallbladder is surgically absent. There is no biliary ductal dilatation. Pancreas: The pancreas is grossly normal in size and configuration. Adrenal Glands:The adrenal glands are normal in size and configuration. Kidneys:The kidneys are normal in size and configuration. There is no evidence of hydronephrosis. There is a punctate nonobstructing right renal calculus. No focal renal abnormalities are identified. Stomach:The stomach is grossly normal. There is no definite hiatal hernia. Bowel:The bowel gas pattern is non specific and non obstructive. Appendix: The appendix is normal. Free air:There is no evidence of free air. Free fluid: There is a trace amount of pelvic free fluid likely physiologic in nature. Vasculature: The aorta is normal in caliber and contour. The inferior vena cava is grossly unremarkable. Lymphadenopathy: No pathologic lymphadenopathy is identified. Bladder: The bladder is well distended and smooth in contour. Reproductive: The uterus is grossly within normal limits. The previously identified left ovarian dermoid is no longer visualized and has likely been surgically resected. Bones: No acute osseous abnormalities are identified. Soft tissues: No focal soft tissue abnormalities are identified. There are multiple small, calcified pelvic phleboliths. IMPRESSION: 1. No evidence of urinary tract obstruction. There is a punctate nonobstructing right renal calculus. 2. Prior cholecystectomy. 3. Suspect prior resection of the left ovarian dermoid which was noted on the prior study.
[2017-11-11] MEDS ORDERED: CEPHALEXIN 500 MG CAPSULE PO ONE (06:29)
[2017-11-11 06:44] VITALS: BP 110/50
== END 2017-11-11 06:45 | disposition home or self-care (01) ==
LOC: ER 01:55
DX: G89.29 Other chronic pain (principal); M54.5 Low back pain; N39.0 Urinary tract infection, site not specified; R31.9 Hematuria, unspecified; R10.814 Left lower quadrant abdominal tenderness; R11.2 Nausea with vomiting, unspecified; F17.210 Nicotine dependence, cigarettes, uncomplicated; Z87.442 Personal history of urinary calculi
CPT/HCPCS: 76380; 81001; 81025; 87086; 99284

== ENCOUNTER 2018-05-24 06:01 | Emergency (ER) | payer SELFPAY ==
[2018-05-24 06:21] VITALS: BP 126/90
[2018-05-24] MEDS ORDERED: LIDOCAINE 2% JELLY 30 ML TUBE TOP ONE (06:26)
[2018-05-24] MEDS ORDERED: HYDROCODONE/ACETAMINOPHEN 5-325 MG (6 TAB/ER DISP) PO PRN (06:35)
[2018-05-24] MEDS ORDERED: PENICILLIN V POTASSIUM 500 MG TABLET PO ONE (06:35)
--- NOTE | 2018-05-24 06:37 | ER Document Report ---
HPI - HPI Time Seen by Provider: 05/24/18 06:25 Pain Level: 3 Context: Patient is a 38-year-old female that comes emergency department for chief complaint of dental pain. Pain radiates from her jaw up towards her left ear. She states she has 2 broken teeth in the left lower jaw, this broke when eating candy not long ago. She denies history of similar problems. She denies fever, neck pain, sore throat. She denies any daily medications, denies , denies any diagnosed medical problems. - REPRODUCTIVE Reproductive: DENIES: : Past Medical History - General Information source: Patient - Social History Smoking Status: Never Smoker Frequency of alcohol use: None Drug Abuse: None Lives with: Family Family History: Reviewed & Not Pertinent, CAD, Hyperlipidemia, Hypertension, Malignancy - Past Medical History Cardiac Medical History: Denies: Hx Coronary Artery Disease, Hx Heart Attack, Hx Hypertension Pulmonary Medical History: Denies: Hx Asthma, Hx Bronchitis, Hx COPD, Hx Pneumonia Neurological Medical History: Denies: Hx Cerebrovascular Accident, Hx Seizures Renal/ Medical History: Reports: Hx Kidney Stones, Hx Ovarian Cysts. Denies: Hx Peritoneal Dialysis GI Medical History: Reports: Hx Gastroesophageal Reflux Disease Musculoskeletal Medical History: Denies Hx Arthritis Skin Medical History: Reports Hx MRSA - MRSA 06/06/08 BREAST Psychiatric Medical History: Reports: Hx Anxiety Infectious Medical History: Reports: Hx MRSA Past Surgical History: Reports: Hx Cholecystectomy, Hx Gynecologic Surgery - Left salpingo-oophorectomy, Other - LSO for dermoid cyst - Immunizations Hx Diphtheria, Pertussis, Tetanus Vaccination: Yes Vertical Provider Document - CONSTITUTIONAL General Appearance: WD/WN, No Apparent Distress - INFECTION CONTROL TRAVEL OUTSIDE OF THE [place] IN LAST 30 DAYS: No - HEENT HEENT: Atraumatic, Normocephalic. negative: Normal ENT Exam - Unremarkable oropharyngeal exam except for dental exam listed below. Unremarkable ears, sinus exam. Mouth Diagram: 1 - both teeth with fractures, surrounding erythema, but no induration, fluctuance, noted abscess - NECK Neck: Normal Inspection - RESPIRATORY Respiratory: Breath Sounds Normal, No Respiratory Distress - CARDIOVASCULAR Cardiovascular: Regular Rate, Regular Rhythm - GI/ABDOMEN Gastrointestinal: Abdomen Soft, Abdomen Non-Tender - BACK Back: Normal Inspection - MUSCULOSKELETAL/EXTREMETIES Musculoskeletal/Extremeties: MAEW, FROM, Non-Tender - NEURO Level of Consciousness: Awake, Alert - DERM Integumentary: Warm, Dry, No Rash Course - Re-evaluation Re-evalutation: Well-appearing patient, no evidence of Jori's angina or abscess. Examination is consistent with a dental infection. Placing on antibiotics, discussed follow-up, return precautions. Patient states understanding and agreement. - Vital Signs Vital signs: Temp Pulse Resp BP Pulse Ox 98.1 F 100 17 126/90 H 99 05/24/18 06:17 05/24/18 06:17 05/24/18 06:17 05/24/18 06:05/24/18 06:17 Discharge - Discharge Clinical Impression: Pain, dental Condition: Stable Disposition: HOME, SELF-CARE Additional Instructions: Your evaluation is consistent with a dental infection. Take antibiotics as prescribed, you can use the topical lidocaine for pain, take Tylenol or ibuprofen for pain, will use the stronger pain medication provided for severe pain/sleep. Follow-up with the dental referral or this will continue to occur. Return if you worsen including swelling of the face. [facility] [address], [address] Prescriptions: Penicillin V Potassium [Penicillin Vk 500 mg Tablet] 500 mg PO BID #20 tablet Referrals: MARNIE BALBUENA MD [ACTIVE STAFF] - Follow up as needed
[2018-05-24] MEDS ORDERED: LIDOCAINE 2% VISCOUS SOLN 20 ML UDCUP PO ONE (06:46)
== END 2018-05-24 07:11 | disposition home or self-care (01) ==
LOC: ER 06:01
DX: K08.89 Other specified disorders of teeth and supporting structures (principal); R68.84 Jaw pain; H92.02 Otalgia, left ear
CPT/HCPCS: 99282; J3490

== ENCOUNTER 2018-08-05 21:03 | Emergency (ER) | payer SELFPAY ==
[2018-08-05 21:25] VITALS: BP 122/91
== END 2018-08-05 22:10 | disposition left against medical advice (07) ==
LOC: ER 21:03
DX: Z53.21 Procedure and treatment not carried out due to patient leaving prior to being seen by health care provider (principal)

== ENCOUNTER 2019-08-28 12:08 | Emergency (ER) | payer SELFPAY ==
--- NOTE | 2019-08-28 12:30 | ER Document Report ---
ED Medical Screen (RME) - General Chief Complaint: Vaginal Bleeding Stated Complaint: VAGINAL BLEEDING Time Seen by Provider: 08/28/19 12:27 Primary Care Provider: NOEMY HERNANDEZ MD [Primary Care Provider] - Follow up as needed Notes: This 39-year-old female presents to the emergency room today stating that she has heavy vaginal bleeding with clots. Which initiated. She last had a menstrual period 2 weeks ago which was quite normal. TRAVEL OUTSIDE OF THE [place] IN LAST 30 DAYS: No - Related Data Allergies/Adverse Reactions: No Known Allergies Allergy (Verified 08/28/19 12:26) Past Medical History - Past Medical History Cardiac Medical History: Denies: Hx Coronary Artery Disease, Hx Heart Attack, Hx Hypertension Pulmonary Medical History: Denies: Hx Asthma, Hx Bronchitis, Hx COPD, Hx Pneumonia Neurological Medical History: Denies: Hx Cerebrovascular Accident, Hx Seizures Renal/ Medical History: Reports: Hx Kidney Stones, Hx Ovarian Cysts. Denies: Hx Peritoneal Dialysis GI Medical History: Reports: Hx Gastroesophageal Reflux Disease Musculoskeltal Medical History: Denies Hx Arthritis Skin Medical History: Reports Hx MRSA - MRSA 06/06/08 BREAST Psychiatric Medical History: Reports: Hx Anxiety Infectious Medical History: Reports: Hx MRSA Past Surgical History: Reports: Hx Cholecystectomy, Hx Gynecologic Surgery - Left salpingo-oophorectomy, Other - LSO for dermoid cyst - Immunizations Hx Diphtheria, Pertussis, Tetanus Vaccination: Yes Physical Exam - Vital signs Vitals: Temp Pulse Resp BP Pulse Ox 98.7 F 87 14 131/85 H 98 08/28/19 12:13 08/28/19 12:13 08/28/19 12:13 08/28/19 12:13 08/28/19 12:13 Course - Vital Signs Vital signs: Temp Pulse Resp BP Pulse Ox 98.7 F 87 14 131/85 H 98 08/28/19 12:13 08/28/19 12:13 08/28/19 12:13 08/28/19 12:13 08/28/19 12:13 Doctor's Discharge - Discharge Referrals: NOEMY HERNANDEZ MD [Primary Care Provider] - Follow up as needed
[2019-08-28 13:15] LABS: ABSOLUTE EOSINOPHILS # (AUTO) 0.2 10^3/uL (0.0-0.6); ABSOLUTE LYMPHOCYTES (AUTO) 2.6 10^3/uL (0.5-4.7); ABSOLUTE MONOCYTES (AUTO) 0.3 10^3/uL (0.1-1.4); ABSOLUTE NEUT (AUTO) 4.2 10^3/uL (1.7-8.2); BASOPHILS % (AUTO) 0.5 % (0-2); EOSINOPHILS % (AUTO) 2.9 % (0-6); HEMATOCRIT 34.6 % (36.0-47.0); HEMOGLOBIN 11.5 g/dL (12.0-15.5); LYMPHOCYTES % (AUTO) 35.4 % (13-45); MEAN CORPUSCULAR HGB CONC 33.3 g/dL (32.0-36.0); MEAN CORPUSCULAR VOLUME 90 fl (80-97); MONOCYTES % (AUTO) 4.1 % (3-13); PLATELET COUNT 267 10^3/uL (150-450); RED BLOOD COUNT 3.84 10^6/uL (3.72-5.28); RED CELL DISTRIBUTION WIDTH 13.4 % (11.5-14.0); SEGMENTED NEUTROPHILS % (AUTO) 57.1 % (42-78); TOTAL CELLS COUNTED % (AUTO) 100 %; WHITE BLOOD COUNT 7.4 10^3/uL (4.0-10.5)
[2019-08-28 13:17] LABS: APPEARANCE,URINE CLOUDY; BILIRUBIN,URINE NEGATIVE (NEGATIVE); COLOR,URINE YELLOW; GLUCOSE, URINE NEGATIVE (NEGATIVE); KETONES,URINE NEGATIVE (NEGATIVE); LEUKOCYTE ESTERASE,URINE TRACE (NEGATIVE); NITRITE,URINE NEGATIVE (NEGATIVE); PROTEIN,URINE 30 mg/dL (NEGATIVE); URINE SPECIFIC GRAVITY 1.021; UROBILINOGEN,URINE NEGATIVE mg/dL (<2.0)
[2019-08-28 13:37] LABS: ALBUMIN 4.1 g/dL (3.5-5.0); ALKALINE PHOSPHATASE 57 U/L (38-126); ASPARTATE AMINO TRANSFERASE 19 U/L (14-36); BILIRUBIN,TOTAL 0.5 mg/dL (0.2-1.3); BLOOD UREA NITROGEN 12 mg/dL (7-20); CALCIUM 9.1 mg/dL (8.4-10.2); GLUCOSE 89 mg/dL (75-110); POTASSIUM 4.5 mmol/L (3.6-5.0)
[2019-08-28 13:43] LABS: CARBON DIOXIDE 28 mmol/L (22-30); CHLORIDE 106 mmol/L (98-107)
[2019-08-28 14:03] LABS: ANION GAP 4 (5-19)
[2019-08-28] MEDS ORDERED: CEFTRIAXONE INJ 250 MG VIAL IM ONE (15:20)
[2019-08-28] MEDS ORDERED: KETOROLAC TROMETHAMINE 60 MG/2 ML SDV IM ONE (15:20)
[2019-08-28] MEDS ORDERED: LIDOCAINE 1% INJ-PF (10 MG/ML) 30 ML SDV NEB ONE (15:20)
--- NOTE | 2019-08-28 15:20 | ER Document Report ---
ED General - General Chief Complaint: Vaginal Bleeding Stated Complaint: VAGINAL BLEEDING Time Seen by Provider: 08/28/19 12:27 Primary Care Provider: NOEMY HERNANDEZ MD [ACTIVE STAFF] - Follow up as needed Mode of Arrival: Ambulatory Information source: Patient TRAVEL OUTSIDE OF THE [place] IN LAST 30 DAYS: No - HPI Notes: Patient presents complaining of vaginal bleeding. She states is going on for 2 days. She also is having some right flank pain that radiates to the lower abdomen. She states it feels better when she lays on that side and worse when she does not. It is been moderate in intensity and sharp. This pain has been intermittent. She states she has had some clots with the bleeding. No tissue. - Related Data Allergies/Adverse Reactions: No Known Allergies Allergy (Verified 08/28/19 12:26) Past Medical History - General Information source: Patient - Social History Smoking Status: Current Every Day Smoker Frequency of alcohol use: None Drug Abuse: None Family History: Reviewed & Not Pertinent, CAD, Hyperlipidemia, Hypertension, Malignancy Patient has homicidal ideation: No - Past Medical History Cardiac Medical History: Denies: Hx Coronary Artery Disease, Hx Heart Attack, Hx Hypertension Pulmonary Medical History: Denies: Hx Asthma, Hx Bronchitis, Hx COPD, Hx Pneumonia Neurological Medical History: Denies: Hx Cerebrovascular Accident, Hx Seizures Renal/ Medical History: Reports: Hx Kidney Stones, Hx Ovarian Cysts. Denies: Hx Peritoneal Dialysis GI Medical History: Reports: Hx Gastroesophageal Reflux Disease Musculoskeletal Medical History: Denies Hx Arthritis Skin Medical History: Reports Hx MRSA - MRSA 06/06/08 BREAST Psychiatric Medical History: Reports: Hx Anxiety Infectious Medical History: Reports: Hx MRSA Past Surgical History: Reports: Hx Cholecystectomy, Hx Gynecologic Surgery - Left salpingo-oophorectomy, Other - LSO for dermoid cyst - Immunizations Hx Diphtheria, Pertussis, Tetanus Vaccination: Yes Review of Systems - Review of Systems Constitutional: denies: Chills, Fever Cardiovascular: denies: Chest pain, Palpitations Respiratory: denies: Cough, Short of breath -: Yes All other systems reviewed and negative Physical Exam - Vital signs Vitals: Temp Pulse Resp BP Pulse Ox 98.7 F 87 14 131/85 H 98 08/28/19 12:13 08/28/19 12:13 08/28/19 12:13 08/28/19 12:13 08/28/19 12:13 Interpretation: Normal - General General appearance: Appears well, Alert - HEENT Head: Normocephalic, Atraumatic Eyes: Normal Pupils: PERRL - Respiratory Respiratory status: No respiratory distress Chest status: Nontender Breath sounds: Normal Chest palpation: Normal - Cardiovascular Rhythm: Regular Heart sounds: Normal auscultation Murmur: No - Abdominal Inspection: Normal Distension: No distension Bowel sounds: Normal Tenderness: Nontender Organomegaly: No organomegaly - Back Back: Normal, Nontender - Extremities General upper extremity: Normal inspection, Nontender, Normal color, Normal ROM, Normal temperature General lower extremity: Normal inspection, Nontender, Normal color, Normal ROM, Normal temperature, Normal weight bearing. No: Kamila's sign - Neurological Neuro grossly intact: Yes Cognition: Normal Orientation: AAOx4 Switzer Coma Scale Eye Opening: Spontaneous Armando Coma Scale Verbal: Oriented Armando Coma Scale Motor: Obeys Commands Switzer Coma Scale Total: 15 Speech: Normal Motor strength normal: LUE, RUE, LLE, RLE Sensory: Normal - Psychological Associated symptoms: Normal affect, Normal mood - Skin Skin Temperature: Warm Skin Moisture: Dry Skin Color: Normal Course - Re-evaluation Re-evalutation: 08/28/19 15:15 Patient presents with vaginal bleeding and some right-sided pain. With the degree of vaginal bleeding this presentation does not seem consistent with a kidney stone. It also does not seem consistent with torsion. She could possibly have an STD therefore I will treat her with Rocephin and doxy. I will also prescribe Provera and refer her to [facility] for the dysfunctional uterine bleeding. - Vital Signs Vital signs: Temp Pulse Resp BP Pulse Ox 99.8 F 87 14 131/85 H 98 08/28/19 12:26 08/28/19 12:13 08/28/19 12:13 08/28/19 12:13 08/28/19 12:13 - Laboratory Result Diagrams: 08/28/19 12:50 08/28/19 12:50 Laboratory results interpreted by me: 08/28/19 08/28/19 08/28/19 12:45 12:50 12:50 Hgb 11.5 L Hct 34.6 L Anion Gap 4 L Urine Protein 30 H Urine Blood LARGE H Ur Leukocyte Esterase TRACE H Discharge - Discharge Clinical Impression: Dysfunctional uterine bleeding UTI (urinary tract infection) Qualifiers: Urinary tract infection type: site unspecified Hematuria presence: with hematuria Qualified Code(s): N39.0 - Urinary tract infection, site not specified; R31.9 - Hematuria, unspecified Condition: Stable Disposition: HOME, SELF-CARE Instructions: Urinary Tract Infection ([facility]), Dysfunctional Uterine Bleeding ([facility]) Additional Instructions: Please call Dr. Cuevas as soon as possible to arrange follow-up Prescriptions: Doxycycline Hyclate 100 mg PO BID 7 Days #14 tablet. Medroxyprogesterone Acet [Provera 10 Mg Tablet] 10 mg PO DAILY 10 Days #10 tablet Tramadol HCl [Ultram] 50 mg PO Q6 PRN 3 Days #12 tablet PRN Reason: Referrals: NOEMY HERNANDEZ MD [ACTIVE STAFF] - Follow up as needed BRIAN CUEVAS MD [ACTIVE STAFF] - Follow up in 3-5 days
[2019-08-28 16:01] VITALS: BP 130/68
== END 2019-08-28 16:00 | disposition home or self-care (01) ==
LOC: ER 12:08
DX: N93.8 Other specified abnormal uterine and vaginal bleeding (principal); N39.0 Urinary tract infection, site not specified; R31.9 Hematuria, unspecified; R10.9 Unspecified abdominal pain; F17.200 Nicotine dependence, unspecified, uncomplicated
CPT/HCPCS: 99284; 96372; 36415; 84702; 83690; 85025; 80053; 81001; J1885; J3490; J0696